=== PATIENT | female | born 1995 | race Caucasian/White ===

== ENCOUNTER 2018-02-13 21:44 | Observation (INO) ==
[2018-02-13 22:10] LABS: Microscopic, Urine URINE MICROSCOPIC (MICROSCOPIC)
[2018-02-13 22:14] LABS: Appearance,Urine CLEAR (Clear); Bilirubin,Urine Negative (Negative); Blood, Urine 2+ (Negative); Color,Urine YELLOW (Yellow); Glucose,Urine (UA) Negative (Negative); Ketones,Urine Negative (Negative); Leukocyte Esterase,Urine Negative (Negative); Protein,Urine Negative (Negative); Specific Gravity, Urine >= 1.030 (1.005-1.030); Urobilinogen,Urine 0.2 EU/dl (0.2)
[2018-02-13 22:15] LABS: Basophils # 0.1 K/mm3 (0-0.2); Basophils % 0.6 % (0.1-2.0); Eosinophils # 0.2 K/mm3 (0.0-0.4); Eosinophils % 1.4 % (0.1-12.0); Hematocrit 44.6 % (37.0-47.0); Hemoglobin 14.3 g/dL (12.2-16.2); Lymphocytes # 6.7 K/mm3 (0.7-4.5); Lymphocytes % 38.9 K/mm3 (10-50); Mean Corpuscular HGB Conc 32.1 g/dL (31.8-35.4); Mean Corpuscular Hemoglobin 30.1 pg (27.0-31.2); Mean Corpuscular Volume 93.7 fl (81-99); Mean Platelet Volume 7.7 fl (7.4-10.4); Monocytes % 5.6 % (1.7-9.3); Neutrophils # 9.3 K/mm3 (1.8-7.8); Neutrophils % 53.6 % (37.0-80.0); Platelet Count 354 K/mm3 (142-424); Red Blood Count 4.76 M/mm3 (4.20-5.40); Red Cell Distribution Width 12.9 % (11.5-17.5); White Blood Count 17.3 K/mm3 (4.8-10.8)
[2018-02-13 22:32] LABS: Alanine Aminotransferase 28 U/L (12-78); Albumin Level 3.7 gm/dL (3.4-5.0); Albumin/Globulin Ratio 0.9 (1.1-1.8); Alkaline Phosphatase 61 U/L (46-116); Amylase 51 U/L (25-125); Anion Gap 14.9 mEq/L (5-15); Aspartate Amino Transferase 8 U/L (15-37); Bilirubin,Total 0.2 mg/dL (0.2-1.0); Blood Urea Nitrogen 11 mg/dL (7-18); Calcium 9.7 mg/dL (8.5-10.1); Carbon Dioxide 24 mmol/L (21.0-32.0); Chloride 105 mmol/L (98-107); Glucose 120 mg/dL (74-106); Lipase 134 u/L (73-393); Potassium 3.9 mmoL/L (3.5-5.1); Sodium 140 mmol/L (136-145); Total Protein,Serum 7.7 gm/dL (6.4-8.2)
[2018-02-13 22:44] LABS: Bacteria,Urine 1+ /lpf; WBC,Urine Occasional #/hpf (0-3)
[2018-02-13 22:59] LABS: Eosinophils % 1 % (0-3); Lymphocytes % 36 % (10-50); Monocytes % 1 % (2-9); Neutrophils % 62 % (42-76); Stomatocytes 1+; Total Cells Counted 100
--- NOTE | 2018-02-14 00:18 | Emergency Department Note ---
ED Disposition Clinical Impression: Abdominal pain Qualifiers: Abdominal location: right upper quadrant Qualified Code(s): R10.11 - Right upper quadrant pain Disposition: Admitted as Observation Condition on Discharge: Good - Critical Care Critical Care Time: No Attestation: On 02/13/18, the high probability of a clinically significant, sudden or life threatening deterioration of the following system(s) required my full and direct attention, intervention and personal management. The time I documented below is in addition to time spent performing reported procedures but includes the following listed in this critical care notation. Medical Decision Making - Medical Records Medical records reviewed: Yes: I reviewed the patient's medical records. - Dhruv Inquiry Pt receiving controlled substance: No Vital Signs: 02/13/18 21:45 02/13/18 23:35 02/13/18 23:51 Temperature 98.7 F Temperature Source Oral Pulse Rate [Right Brachial] 133 H 90 89 Respiratory Rate 18 18 16 Blood Pressure [Right Arm] 156/90 136/87 136/87 Blood Pressure Mean [Right Arm] 112 103 103 Blood Pressure Source [Right Arm] Automatic Cuff Automatic Cuff Automatic Cuff Blood Pressure Position [Right Arm] Sitting Sitting Sitting 02 Sat by Pulse Oximetry 98 100 100 Oxygen Delivery Method Room Air Room Air Room Air 02/14/18 00:24 02/14/18 00:57 02/14/18 01:30 Temperature 98.5 F Temperature Source Oral Pulse Rate [Right Brachial] 92 H 86 91 H Respiratory Rate 16 15 15 Blood Pressure [Right Arm] 140/66 141/76 139/65 Blood Pressure Mean [Right Arm] 90 97 89 Blood Pressure Source [Right Arm] Blood Pressure Position [Right Arm] 02 Sat by Pulse Oximetry 97 99 98 Oxygen Delivery Method Room Air Room Air Room Air - Lab Data Lab results reviewed: Yes: I reviewed the patient's lab results. Lab Results 02/13/18 21:50: Urine Color Yellow, Urine Appearance Clear, Urine pH 6.0, Ur Specific [place] >= 1.030, Urine Protein Negative, Urine Glucose (UA) Negative, Urine Ketones Negative, Urine Blood 2+, Urine Nitrate Negative, Urine Bilirubin Negative, Urine Urobilinogen 0.2, Ur Leukocyte Esterase Negative, Urine RBC 5-10 , Urine WBC Occasional, Ur Squamous Epith Cells 10-20, Urine Bacteria 1+ 02/13/18 21:50: Urine HCG, Qual Negative 02/13/18 22:00: WBC 17.3 H, RBC 4.76, Hgb 14.3, Hct 44.6, MCV 93.7, MCH 30.1, MCHC 32.1, RDW 12.9, Plt Count 354, MPV 7.7, Neut % (Auto) 53.6, Lymph % (Auto) 38.9, [place] % (Auto) 5.6, Eos % (Auto) 1.4, Baso % (Auto) 0.6, Neut # (Auto) 9.3 H, Lymph # (Auto) 6.7 H, [place] # (Auto) 1.0, Eos # (Auto) 0.2, Baso # (Auto) 0.1 , Total Counted 100, Neutrophils % (Manual) 62, Lymphocytes % (Manual) 36, Monocytes % (Manual) 1 L, Eosinophils % (Manual) 1, Platelet Estimate Normal, Stomatocytes 1+ 02/13/18 22:00: Sodium 140, Potassium 3.9, Chloride 105, Carbon Dioxide 24, Anion Gap 14.9, BUN 11, Creatinine 0.79, Estimated Creat Clear 108, Estimated GFR 90, Est GFR ( Amer) 109, Glucose 120 H, Calcium 9.7, Total Bilirubin 0.2, AST 8 L, ALT 28, Alkaline Phosphatase 61, Troponin I < 0.02, Total Protein 7.7, Albumin 3.7, Globulin 4.0 H, Albumin/Globulin Ratio 0.9 L, Amylase 51, Lipase 134 Result diagrams: 02/13/18 22:00 02/13/18 22:00 Orders (Tests/Meds): ED MEDICATIONS Generic Name Dose Route Start Last Admin Trade Name Freq PRN Reason Stop Dose Admin Sodium Chloride 1,000 mls @ 100 mls/hr 02/14/18 00:30 02/14/18 00:23 Sod Chlor 0.9% 1000ml Bag IV 02/14/18 10:29 100 mls/hr .Q10H LAMONT Administration Discontinued Medications Generic Name Dose Route Start Last Admin Trade Name Freq PRN Reason Stop Dose Admin Famotidine 20 mg 02/13/18 21:57 02/13/18 22:14 Pepcid 20mg/2ml Vial IV 02/13/18 21:58 20 mg ONCE ONE Administration Sodium Chloride 1,000 mls @ 999 mls/hr 02/13/18 22:00 06/06/18 22:14 Sod Chlor 0.9% 1000ml Bag IV 02/13/18 23:00 999 mls/hr .Q1H1M LAMONT Administration Ketorolac Tromethamine 30 mg 02/13/18 21:57 02/13/18 22:14 Toradol 30mg/Ml Vial IV 02/13/18 21:58 30 mg ONCE ONE Administration Metoclopramide HCl 5 mg 02/13/18 21:57 02/13/18 22:14 Reglan 10mg/2ml Vial IVP 02/13/18 21:58 5 mg ONCE ONE Administration Morphine Sulfate 4 mg 02/14/18 00:17 02/14/18 00:23 Morphine 2mg/2ml Syringe IV 02/14/18 00:18 4 mg ONCE ONE Administration Ondansetron HCl 4 mg 02/14/18 00:17 02/14/18 00:23 Zofran 4mg/2ml Vial IV 02/14/18 00:18 4 mg ONCE ONE Administration ORDERS Category Date Time Status CT abdomen pelvis wo con Stat Cat Scan 02/13/18 21:57 Taken Chest XR 2 view (NOT portable) [XR chest 2V] Stat Exams 02/13/18 21:58 Taken ECG Request by /Erlin Stat Y 02/13/18 21:58 Ordered - Radiology Data #1 Image(s): Chest Image Reviewed: Yes I reviewed the patient's radiology image Preliminary Findings: Normal/NAD - CT Data CT Scan: Abdomen, Pelvis Time Received: 01:[address] Reviewed: Yes: I have viewed the radiologist's interpretation Preliminary Findings: Abnormal (see report ) - ECG Data Tracing #1 I reviewed this ECG and interpreted as documented below: Normal Sinus Rhythm: Yes Ischemic changes: non-specific ST-T wave changes - Physician Consults Physician Consulted: natividad Reason -: Admission Nausea/Vomiting/Diarrhea HPI - General Chief complaint: Abdominal Pain Stated complaint: stomach pain Time Seen by Provider: 02/14/18 00:14 Mode of Arrival: Ambulatory Source of Information: Patient, Parent(s), Medical Record Limitations: No Limitations Description of Symptoms (Recalled from ER Triage Doc. by RN): c/o mid gastric abdominal pain that started at 0500 today, and has progressively gotten worse over the day. Reports no nausea or vomiting. No c/o diarrhea. No c/o fever. Reports pain radiates into her back. - History of Present Illness HPI Narrative: pt with progressive painful upper abd pain with nausea but no gerd or melena - she has no chest pain and no cough MD complaint: nausea, vomiting, abdominal pain Onset (ago): day(s) Associated Abdominal Pain: Yes Location of pain: RUQ, epigastric Quality: sharp Consistency: intermittent - Related Data Home Medications Medication Instructions Recorded Confirmed Norethindrone-E.estradiol-Iron 1 tab PO DAILY 02/13/18 02/13/18 [Microgestin Fe 1-20 Tablet] Allergies Allergy/AdvReac Type Severity Reaction Status Date / Time ACETAMINOPHEN Allergy Severe CLOSES Uncoded 08/28/17 14:03 [facility] History I have reviewed the patient's past medical history: Yes Medical History: Denies:: Cancer, Diabetes Mellitus Type 1, Diabetes Mellitus Type 2, MRSA Amputation: No Fractures: No - Social History Educational Level: Completed Grade School Smoking Status: Current every day smoker Tobacco Type: cigarettes Alcohol Intake: never - Psychiatric History Expresses thoughts of harming self/others: None Suicide Plan Description: No Plan ROS Obtained: Yes All systems reviewed & no additional complaints - Constitutional Constitutional: Denies fever(s) - Eyes Eyes: Denies change in vision - ENT Ears, Nose, Mouth, and Throat: Denies sore throat - Cardiovascular Cardiovascular: Denies chest pain at rest - Respiratory Respiratory: No cough - Gastrointestinal Gastrointestingal: Reports: abdominal pain, nausea, vomiting. Denies: diarrhea , black, tarry stools - Genitourinary Female Genitourinary: Denies hematuria - Musculoskeletal Musculoskeletal: Denies joint pain, Denies joint swelling - Integumentary/Breasts Skin/Breast: Denies rash - Neurologic Neurologic: Denies headache(s), Denies seizure-like activity Physical Exam - General General appearance: alert, in no apparent distress - Head Head exam: normocephalic - Eye Eye exam: Present: PERRL, EOMI. Absent: scleral icterus - ENT ENT exam: Present: mucous membranes moist - Neck Neck exam: Present: trachea midline - Respiratory Respiratory exam: Present: normal lung sounds bilaterally. Absent: respiratory distress - Cardiovascular Cardiovascular exam: Present: regular rate. Absent: systolic murmur - Abdominal Exam Abdominal exam: Present: soft, tenderness, Gibson's sign Abdominal tenderness: Present: RUQ, epigastrium, moderate - Extremities Exam Extremities exam: Present: full ROM - Back Exam Back exam: Absent: CVA tenderness (R) - Neurological Exam Neurological exam: Present: alert, oriented X3, CN II-XII intact - Psychiatric Psychiatric exam: Present: normal affect - Skin Skin exam: Absent: rash
[2018-02-14 06:05] LABS: Albumin Level 3.2 gm/dL (3.4-5.0); Albumin/Globulin Ratio 0.9 (1.1-1.8); Anion Gap 14.4 mEq/L (5-15); Bilirubin,Total 0.2 mg/dL (0.2-1.0); Calcium 8.8 mg/dL (8.5-10.1); Globulin 3.6 gm/dl (1.3-3.2); Potassium 4.4 mmoL/L (3.5-5.1); Total Protein,Serum 6.8 gm/dL (6.4-8.2)
--- NOTE | 2018-02-14 07:40 | Pharmacy Consult Notes ---
[facility] Pharmacy VTE Monitoring - Patient Demographics Admission date: 02/14/18 Report Date: 02/14/18 Time: 07:40 Allergies/Adverse Reactions: Patient Allergies acetaminophen Allergy (Severe, Verified 02/14/18 07:39) Difficulty Swallowing Height: 1.7 m Weight: 131.655 kg Patient Problems: Current Active Problems Abdominal pain (Acute) - VTE Risk Labs: VTE Related Lab Results Hgb 14.3 g/dL (12.2-16.2) 02/13/18 22:00 Hct 44.6 % (37.0-47.0) 02/13/18 22:00 Plt Count 354 K/mm3 (142-424) 02/13/18 22:00 BUN 9 mg/dL (7-18) 02/14/18 05:20 Creatinine 0.73 mg/dL (0.55-1.02) 02/14/18 05:20 Estimated Creat Clear 117 mL/min (0-300) 02/14/18 05:20 Was VTE Risk Assessment Performed: Yes VTE Score: 3 VTE Risk Level: Low Risk Clinical Trial Participant: No - Prophylaxis VTE Prophylaxis Ordered?: Yes Types of VTE Prophylaxis: TEDS Knee High
--- NOTE | 2018-02-14 07:51 | History & Physical Report ---
*Admission Date: 02/14/18 *Chief complaint: Abdominal pain *History of present illness: 22-year-old white female with no past medical history, who woke up at 5 AM yesterday with intense abdominal pain that awoke her from sleep. She thought she had some type of stomach viral infection and went to work but the pain became intolerable. She did not have vomiting but has significant nausea with cramping type right and left upper quadrant pain. No diarrhea. The pain became worse, and she came to the emergency department late last night. CT scan showed evidence of cholelithiasis. She had elevated white count, but otherwise no electrolyte disturbances. She was admitted to hospital for pain control and further evaluation. This morning she continues to be uncomfortable but without fever. [facility] History I have reviewed the patient's past medical history: Yes Medical History: Denies:: Cancer, Diabetes Mellitus Type 1, Diabetes Mellitus Type 2, MRSA Other Surgeries: Yes: No Previous Surgery Amputation: No Fractures: No - *Social History Educational Level: Completed High School Smoking Status: Current every day smoker Tobacco Type: cigarettes # Packs/Day (cigarettes): 1 #Yrs smoked (if former smoker): 8 Alcohol Intake: never Occupational Status: employed Housing: house Household Members: spouse - Psychiatric History Expresses thoughts of harming self/others: None Suicide Plan Description: No Plan *Family Hx:: Hyperlipidemia, Hypertension, Stroke Review of Systems - Constitutional Denies anorexia, Denies body ache(s), Denies chills - ENT Denies abnormal hearing, Denies bleeding gums - *Cardiovascular Denies chest pain, Denies chest pain at rest, Denies chest pain with activity, Denies excessive sweating, Denies shortness of breath - *Respiratory Denies change in phlegm color, Denies chest congestion, Denies cough - *Gastrointestinal Reports abdominal pain, Reports bloating, Denies coffee ground vomit, Denies constipation, Denies cramping, Denies difficulty swallowing - *Genitourinary Denies abnormal periods, Denies painful periods Comments: On oral contraceptives. - *Musculoskeletal Denies abnormal walking, Denies joint pain, Denies decreased muscle mass - *Neurologic Denies abnormal walking, Denies abnormal hearing, Denies abnormal movements, Denies headache(s), Denies seizure-like activity Meds Home Medications Medication Instructions Recorded Confirmed Type Norethindrone-E.estradiol-Iron 1 tab PO DAILY 02/13/18 02/13/18 History [Microgestin Fe 1-20 Tablet] Allergies Allergy/AdvReac Type Severity Reaction Status Date / Time acetaminophen Allergy Severe Difficulty Verified 02/14/18 07:39 Swallowing Exam Vital signs and Labs for Last 24 Hours: Temp Pulse Resp BP Pulse Ox 98.7 F 100 H 20 113/77 98 02/14/18 07:30 02/14/18 07:30 02/14/18 07:30 02/14/18 07:30 02/14/18 07:30 Laboratory Results - last 24 hr 02/13/18 21:50: Urine Color Yellow, Urine Appearance Clear, Urine pH 6.0, Ur Specific [place] >= 1.030, Urine Protein Negative, Urine Glucose (UA) Negative, Urine Ketones Negative, Urine Blood 2+, Urine Nitrate Negative, Urine Bilirubin Negative, Urine Urobilinogen 0.2, Ur Leukocyte Esterase Negative, Urine RBC 5-10 , Urine WBC Occasional, Ur Squamous Epith Cells 10-20, Urine Bacteria 1+ 02/13/18 21:50: Urine HCG, Qual Negative 02/13/18 22:00: WBC 17.3 H, RBC 4.76, Hgb 14.3, Hct 44.6, MCV 93.7, MCH 30.1, MCHC 32.1, RDW 12.9, Plt Count 354, MPV 7.7, Neut % (Auto) 53.6, Lymph % (Auto) 38.9, [place] % (Auto) 5.6, Eos % (Auto) 1.4, Baso % (Auto) 0.6, Neut # (Auto) 9.3 H, Lymph # (Auto) 6.7 H, [place] # (Auto) 1.0, Eos # (Auto) 0.2, Baso # (Auto) 0.1 , Total Counted 100, Neutrophils % (Manual) 62, Lymphocytes % (Manual) 36, Monocytes % (Manual) 1 L, Eosinophils % (Manual) 1, Platelet Estimate Normal, Stomatocytes 1+ 02/13/18 22:00: Sodium 140, Potassium 3.9, Chloride 105, Carbon Dioxide 24, Anion Gap 14.9, BUN 11, Creatinine 0.79, Estimated Creat Clear 108, Estimated GFR 90, Est GFR ( Amer) 109, Glucose 120 H, Calcium 9.7, Total Bilirubin 0.2, AST 8 L, ALT 28, Alkaline Phosphatase 61, Troponin I < 0.02, Total Protein 7.7, Albumin 3.7, Globulin 4.0 H, Albumin/Globulin Ratio 0.9 L, Amylase 51, Lipase 134 02/14/18 05:20: Sodium 140, Potassium 4.4, Chloride 107, Carbon Dioxide 23, Anion Gap 14.4, BUN 9, Creatinine 0.73, Estimated Creat Clear 117, Estimated GFR 99, Est GFR ( Amer) 120, Glucose 98, Calcium 8.8, Magnesium 1.9, Total Bilirubin 0.2, AST 8 L, ALT 24, Alkaline Phosphatase 53, Total Protein 6.8 , Albumin 3.2 L D, Globulin 3.6 H, Albumin/Globulin Ratio 0.9 L I & O for Last 24 hours: Intake & Output 02/11/18 02/12/18 02/13/18 02/14/18 11:59 11:59 11:59 11:59 Intake Total 2573 / 2573 Balance 2573 / 2573 Weight 290 lb 4 oz Narrative: Alert, oriented 3. ENT exam is clear. Heart rate regular. Lungs are clear with good air movement. Abdomen has positive bowel sounds and is soft but is extremely tender with a positive Gibson's sign in the right upper quadrant. No CVA tenderness. No edema. H&P: Result - Labs Labs: Short CBC 02/13/18 Range/Units 22:00 WBC 17.3 H (4.8-10.8) K/mm3 Hgb 14.3 (12.2-16.2) g/dL Hct 44.6 (37.0-47.0) % Plt Count 354 (142-424) K/mm3 [facility] 02/13/18 02/14/18 22:00 05:20 Sodium 140 140 Potassium 3.9 4.4 Chloride 105 107 Carbon Dioxide 24 23 BUN 11 9 Creatinine 0.79 0.73 Glucose 120 H 98 Calcium 9.7 8.8 Cardiac Enzymes 02/13/18 Range/Units 22:00 Troponin I < 0.02 (0.00-0.06) ng/ml Liver Function 02/13/18 02/14/18 Range/Units 22:00 05:20 Total Bilirubin 0.2 0.2 (0.2-1.0) mg/dL AST 8 L 8 L (15-37) U/L ALT 28 24 (12-78) U/L Alkaline Phosphatase 61 53 (46-116) U/L Albumin 3.7 3.2 L D (3.4-5.0) gm/dL Urine 02/13/18 Range/Units 21:50 Urine Color Yellow (Yellow) Urine Appearance Clear (Clear) Urine pH 6.0 (5.0-8.5) Ur Specific [place] >= 1.030 (1.005-1.030) Urine Protein Negative (Negative) Urine Glucose (UA) Negative (Negative) Assessment and Plan (1) Abdominal pain Current visit: Yes Status: Acute Qualifiers: Abdominal location: right upper quadrant Qualified Code(s): R10.11 - Right upper quadrant pain Category: Medical Code(s): R10.9 - Unspecified abdominal pain Given leukocytosis and possibility of gallbladder disease have started Invanz. Surgical consultation and gallbladder ultrasound today.
[2018-02-14 08:07] LABS: Basophils # 0.1 K/mm3 (0-0.2); Basophils % 0.5 % (0.1-2.0); Eosinophils # 0.2 K/mm3 (0.0-0.4); Eosinophils % 0.9 % (0.1-12.0); Hematocrit 42.4 % (37.0-47.0); Hemoglobin 13.3 g/dL (12.2-16.2); Lymphocytes # 5.1 K/mm3 (0.7-4.5); Mean Corpuscular HGB Conc 31.4 g/dL (31.8-35.4); Mean Corpuscular Hemoglobin 29.8 pg (27.0-31.2); Mean Platelet Volume 8.2 fl (7.4-10.4); Monocytes # 0.9 K/mm3 (0.1-1.0); Monocytes % 5.4 % (1.7-9.3); Neutrophils # 10.7 K/mm3 (1.8-7.8); Neutrophils % 63.2 % (37.0-80.0); Platelet Count 265 K/mm3 (142-424); Red Blood Count 4.46 M/mm3 (4.20-5.40); Red Cell Distribution Width 12.8 % (11.5-17.5); White Blood Count 16.9 K/mm3 (4.8-10.8)
[2018-02-14 08:19] LABS: Albumin Level 3.3 gm/dL (3.4-5.0); Albumin/Globulin Ratio 0.9 (1.1-1.8); Anion Gap 12.3 mEq/L (5-15); Bilirubin,Total 0.2 mg/dL (0.2-1.0); Calcium 8.8 mg/dL (8.5-10.1); Globulin 3.6 gm/dl (1.3-3.2); Potassium 4.3 mmoL/L (3.5-5.1); Total Protein,Serum 6.9 gm/dL (6.4-8.2)
[2018-02-14 09:56] LABS: Lymphocytes % 30 % (10-50); Monocytes % 9 % (2-9); Neutrophils % 61 % (42-76); Total Cells Counted 100
[2018-02-14 09:57] LABS: Stomatocytes 1+
[2018-02-14 09:58] LABS: Tear Drop Cells 1+
--- NOTE | 2018-02-14 12:23 | Consult Report ---
*Admission Date: 02/14/18 *Chief complaint: epigastric pain *History of present illness: This is a 22-year-old female seen in consultation from Dr. Weinberg for evaluation regarding upper abdominal pain. Below is forwarded from her history and physical HPI: 22-year-old white female with no past medical history, who woke up at 5 AM yesterday with intense abdominal pain that awoke her from sleep. She thought she had some type of stomach viral infection and went to work but the pain became intolerable. She did not have vomiting but has significant nausea with cramping type right and left upper quadrant pain. No diarrhea. The pain became worse, and she came to the emergency department late last night. CT scan showed no evidence of cholelithiasis. She had elevated white count, but otherwise no electrolyte disturbances. She was admitted to hospital for pain control and further evaluation. This morning she continues to be uncomfortable but without fever. Note: Patient is subsequently undergone a right upper quadrant ultrasound. She has some biliary sludge, but no evidence of gallstones, pericholecystic fluid, gallbladder wall thickening, or biliary dilatation. Review of Systems - Constitutional Denies fever(s) - Eyes Denies change in vision - *Respiratory Denies cough - *Gastrointestinal Reports abdominal pain, Denies difficulty swallowing, Denies black, tarry stools - *Neurologic Denies abnormal walking, Denies abnormal hearing, Denies abnormal movements, Denies headache(s), Denies seizure-like activity - Hematologic/Lymphatic Denies easy bleeding [facility]H History Medical History: Denies:: Cancer, Diabetes Mellitus Type 1, Diabetes Mellitus Type 2, MRSA Other Surgeries: Yes: No Previous Surgery Amputation: No Fractures: No - *Social History Educational Level: Completed High School Smoking Status: Current every day smoker Tobacco Type: cigarettes # Packs/Day (cigarettes): 1 #Yrs smoked (if former smoker): 8 Alcohol Intake: never Occupational Status: employed Housing: house Household Members: spouse - Psychiatric History Expresses thoughts of harming self/others: None Suicide Plan Description: No Plan *Family Hx:: Hyperlipidemia, Hypertension, Stroke Meds Home Medications Medication Instructions Recorded Confirmed Type Norethindrone-E.estradiol-Iron 1 tab PO DAILY 02/13/18 02/13/18 History [Microgestin Fe 1-20 Tablet] Allergies Allergy/AdvReac Type Severity Reaction Status Date / Time acetaminophen Allergy Severe Difficulty Verified 02/14/18 07:39 Swallowing Exam Vital signs and Labs for Last 24 Hours: Temp Pulse Resp BP Pulse Ox 98.7 F 100 H 20 113/77 98 02/14/18 07:30 02/14/18 07:30 02/14/18 07:30 02/14/18 07:30 02/14/18 07:30 Laboratory Results - last 24 hr 02/13/18 21:50: Urine Color Yellow, Urine Appearance Clear, Urine pH 6.0, Ur Specific Levasy >= 1.030, Urine Protein Negative, Urine Glucose (UA) Negative, Urine Ketones Negative, Urine Blood 2+, Urine Nitrate Negative, Urine Bilirubin Negative, Urine Urobilinogen 0.2, Ur Leukocyte Esterase Negative, Urine RBC 5-10 , Urine WBC Occasional, Ur Squamous Epith Cells 10-20, Urine Bacteria 1+ 02/13/18 21:50: Urine HCG, Qual Negative 02/13/18 22:00: WBC 17.3 H, RBC 4.76, Hgb 14.3, Hct 44.6, MCV 93.7, MCH 30.1, MCHC 32.1, RDW 12.9, Plt Count 354, MPV 7.7, Neut % (Auto) 53.6, Lymph % (Auto) 38.9, [place] % (Auto) 5.6, Eos % (Auto) 1.4, Baso % (Auto) 0.6, Neut # (Auto) 9.3 H, Lymph # (Auto) 6.7 H, [place] # (Auto) 1.0, Eos # (Auto) 0.2, Baso # (Auto) 0.1 , Total Counted 100, Neutrophils % (Manual) 62, Lymphocytes % (Manual) 36, Monocytes % (Manual) 1 L, Eosinophils % (Manual) 1, Platelet Estimate Normal, Stomatocytes 1+ 02/13/18 22:00: Sodium 140, Potassium 3.9, Chloride 105, Carbon Dioxide 24, Anion Gap 14.9, BUN 11, Creatinine 0.79, Estimated Creat Clear 108, Estimated GFR 90, Est GFR ( Amer) 109, Glucose 120 H, Calcium 9.7, Total Bilirubin 0.2, AST 8 L, ALT 28, Alkaline Phosphatase 61, Troponin I < 0.02, Total Protein 7.7, Albumin 3.7, Globulin 4.0 H, Albumin/Globulin Ratio 0.9 L, Amylase 51, Lipase 134 02/14/18 05:20: Sodium 140, Potassium 4.4, Chloride 107, Carbon Dioxide 23, Anion Gap 14.4, BUN 9, Creatinine 0.73, Estimated Creat Clear 117, Estimated GFR 99, Est GFR ( Amer) 120, Glucose 98, Calcium 8.8, Magnesium 1.9, Total Bilirubin 0.2, AST 8 L, ALT 24, Alkaline Phosphatase 53, Total Protein 6.8 , Albumin 3.2 L D, Globulin 3.6 H, Albumin/Globulin Ratio 0.9 L 02/14/18 08:00: WBC 16.9 H, RBC 4.46, Hgb 13.3, Hct 42.4, MCV 95.0, MCH 29.8, MCHC 31.4 L, RDW 12.8, Plt Count 265 D, MPV 8.2, Neut % (Auto) 63.2, Lymph % ( Auto) 30.0, [place] % (Auto) 5.4, Eos % (Auto) 0.9, Baso % (Auto) 0.5, Neut # (Auto ) 10.7 H, Lymph # (Auto) 5.1 H, [place] # (Auto) 0.9, Eos # (Auto) 0.2, Baso # ( Auto) 0.1, Total Counted 100, Neutrophils % (Manual) 61, Lymphocytes % (Manual) 30, Monocytes % (Manual) 9, Platelet Estimate Normal, Tear Drop Cells 1+, Stomatocytes 1+ 02/14/18 08:00: Sodium 141, Potassium 4.3, Chloride 107, Carbon Dioxide 26, Anion Gap 12.3, BUN 8, Creatinine 0.78, Estimated Creat Clear 109, Estimated GFR 92, Est GFR ( Amer) 111, Glucose 97, Calcium 8.8, Total Bilirubin 0.2 , AST 7 L, ALT 26, Alkaline Phosphatase 53, Total Protein 6.9, Albumin 3.3 L, Globulin 3.6 H, Albumin/Globulin Ratio 0.9 L I & O for Last 24 hours: Intake & Output 02/12/18 02/13/18 02/14/18 02/15/18 11:59 11:59 11:59 11:59 Intake Total 2573 / 2573 Balance 2573 / 2573 Weight 290 lb 4 oz - Constitutional mild distress, obese - *Routine Respiratory Exam Absent: respiratory distress - *Routine Cardiovascular Exam Present: RRR - *Routine Abdominal Exam Present: soft, tenderness Comments: mostly TTP in epigastric region Results - Labs 02/14/18 08:00 02/14/18 08:00 Laboratory Results - last 24 hr 02/13/18 21:50: Urine Color Yellow, Urine Appearance Clear, Urine pH 6.0, Ur Specific Levasy >= 1.030, Urine Protein Negative, Urine Glucose (UA) Negative, Urine Ketones Negative, Urine Blood 2+, Urine Nitrate Negative, Urine Bilirubin Negative, Urine Urobilinogen 0.2, Ur Leukocyte Esterase Negative, Urine RBC 5-10 , Urine WBC Occasional, Ur Squamous Epith Cells 10-20, Urine Bacteria 1+ 02/13/18 21:50: Urine HCG, Qual Negative 02/13/18 22:00: WBC 17.3 H, RBC 4.76, Hgb 14.3, Hct 44.6, MCV 93.7, MCH 30.1, MCHC 32.1, RDW 12.9, Plt Count 354, MPV 7.7, Neut % (Auto) 53.6, Lymph % (Auto) 38.9, [place] % (Auto) 5.6, Eos % (Auto) 1.4, Baso % (Auto) 0.6, Neut # (Auto) 9.3 H, Lymph # (Auto) 6.7 H, [place] # (Auto) 1.0, Eos # (Auto) 0.2, Baso # (Auto) 0.1 , Total Counted 100, Neutrophils % (Manual) 62, Lymphocytes % (Manual) 36, Monocytes % (Manual) 1 L, Eosinophils % (Manual) 1, Platelet Estimate Normal, Stomatocytes 1+ 02/13/18 22:00: Sodium 140, Potassium 3.9, Chloride 105, Carbon Dioxide 24, Anion Gap 14.9, BUN 11, Creatinine 0.79, Estimated Creat Clear 108, Estimated GFR 90, Est GFR ( Amer) 109, Glucose 120 H, Calcium 9.7, Total Bilirubin 0.2, AST 8 L, ALT 28, Alkaline Phosphatase 61, Troponin I < 0.02, Total Protein 7.7, Albumin 3.7, Globulin 4.0 H, Albumin/Globulin Ratio 0.9 L, Amylase 51, Lipase 134 02/14/18 05:20: Sodium 140, Potassium 4.4, Chloride 107, Carbon Dioxide 23, Anion Gap 14.4, BUN 9, Creatinine 0.73, Estimated Creat Clear 117, Estimated GFR 99, Est GFR ( Amer) 120, Glucose 98, Calcium 8.8, Magnesium 1.9, Total Bilirubin 0.2, AST 8 L, ALT 24, Alkaline Phosphatase 53, Total Protein 6.8 , Albumin 3.2 L D, Globulin 3.6 H, Albumin/Globulin Ratio 0.9 L 02/14/18 08:00: WBC 16.9 H, RBC 4.46, Hgb 13.3, Hct 42.4, MCV 95.0, MCH 29.8, MCHC 31.4 L, RDW 12.8, Plt Count 265 D, MPV 8.2, Neut % (Auto) 63.2, Lymph % ( Auto) 30.0, [place] % (Auto) 5.4, Eos % (Auto) 0.9, Baso % (Auto) 0.5, Neut # (Auto ) 10.7 H, Lymph # (Auto) 5.1 H, [place] # (Auto) 0.9, Eos # (Auto) 0.2, Baso # ( Auto) 0.1, Total Counted 100, Neutrophils % (Manual) 61, Lymphocytes % (Manual) 30, Monocytes % (Manual) 9, Platelet Estimate Normal, Tear Drop Cells 1+, Stomatocytes 1+ 02/14/18 08:00: Sodium 141, Potassium 4.3, Chloride 107, Carbon Dioxide 26, Anion Gap 12.3, BUN 8, Creatinine 0.78, Estimated Creat Clear 109, Estimated GFR 92, Est GFR ( Amer) 111, Glucose 97, Calcium 8.8, Total Bilirubin 0.2 , AST 7 L, ALT 26, Alkaline Phosphatase 53, Total Protein 6.9, Albumin 3.3 L, Globulin 3.6 H, Albumin/Globulin Ratio 0.9 L - Imaging CT scan - abdomen: report reviewed, image reviewed CT scan - pelvis: report reviewed, image reviewed US - abdomen: report reviewed, image reviewed Assessment and Plan (1) Abdominal pain Current visit: Yes Status: Acute Qualifiers: Abdominal location: right upper quadrant Qualified Code(s): R10.11 - Right upper quadrant pain Category: Medical Code(s): R10.9 - Unspecified abdominal pain The majority of the patient's pain is in the epigastric region and she is also complaining of pain in the bilateral upper quadrants. She is tender in the epigastric region and somewhat in the right upper quadrant. There is no definitive evidence of biliary disease. Her liver function tests are essentially normal. She does have a leukocytosis and concerns regarding possible gastritis or gastroenteritis noted. The patient's anomaly on her CT scan (haustral thickening in cecum) is not in a location consistent with her symptoms. Esophagogastroduodenoscopy-I have discussed the risks and benefits and she agrees to proceed If no definitive abnormality noted on EGD, a CT scan with contrast will be ordered.
--- NOTE | 2018-02-14 12:28 | Procedure Note ---
- Procedure: Date: 02/14/18 Procedure Performed:: Esophagogastroduodenoscopy with biopsy Indications:: Epigastric pain Leukocytosis Performing Provider:: Rene Abraham MD Referring Provider:: Dr. Weinberg Sedation:: Monitored anesthesia care Procedure:: After informed consent was obtained, the patient was taken to the endoscopy suite. Monitored anesthesia care ensued after she was transferred to the left lateral decubitus position. The gastroscope was advanced. The gastroesophageal junction was at 40 cm. The stomach was entered. Retroflexion revealed minimal inflammatory changes and a fairly small sliding hiatal hernia. Distally, minimal inflammatory change also noted and a biopsy of the antrum was obtained. The pylorus is intubated. The duodenal mucosa appeared relatively normal. No severe gastritis, ulcerations, or mass lesions were seen. The gastroscope was carefully removed and the patient was transferred to recovery. Findings:: Mild gastritis Fairly small sliding hiatal hernia Specimens:: Antral biopsy Recommendations:: Follow-up pending pathology Complications:: No immediate Estimated blood obtained (mL): 1
--- NOTE | 2018-02-14 14:18 | Progress Note ---
[facility] Anesthesia Checklist - Structural Data Admitted From: Home Planned Operative Procedure/s: bucky gonzalez Consent for Planned Operative Procedure(s) Verified: Yes Verified Documents: Surgical Consent - Airway Assessment C-Spine Mobility Assessed: Yes TMJ Mobility Assessed: Yes Dentition: Good Dentition - Neurological Assessment Level of Consciousness: Awake, Alert, Appropriate - Anesthesia Plan Anesthesia Risk discussed: Yes Anesthesia Plan: Verified ASA Class: II Anesthesia Type: General [facility] Anesthesia HX I have reviewed the patient's past medical history: Yes Medical History: Denies:: Cancer, Diabetes Mellitus Type 1, Diabetes Mellitus Type 2, MRSA Other Surgeries: Yes: No Previous Surgery Amputation: No Fractures: No *Family Hx:: Hyperlipidemia, Hypertension, Stroke
--- NOTE | 2018-02-14 16:19 | Operative Note ---
Date of procedure: 02/14/18 Pre-op Diagnosis:: Biliary sludge Right upper quadrant pain Post-op Diagnosis:: same Procedure performed:: Laparoscopic cholecystectomy Surgeon:: Rene Abraham MD BRUSHER HAND:: Elvin Swartz Anesthesia: GETA Estimated blood loss (mL): 10 Clinical Note:: This is a 22-year-old female with leukocytosis, right upper quadrant abdominal pain, epigastric pain, and radiographic evidence of some biliary sludge. Concerns regarding possible gastritis or peptic ulcer disease were discussed with the patient and she underwent esophagogastroduodenoscopy earlier today. No significant findings noted. After discussion with the patient concerning the risks and benefits the decision was made to proceed with cholecystectomy. Operative findings:: Mild to moderate distention of gallbladder Operative note:: After informed consent was obtained, the patient was taken to the operating room and placed in the supine position. General anesthesia was induced and the abdomen was prepped and draped in a sterile fashion. After infiltration with local anesthetic an infraumbilical incision was made. A Veress needle was placed in position. The abdomen was insufflated. A 5 mm optical trocar was placed in position. Under direct visualization, a 12 mm trocar was placed in the subxiphoid position and 2 additional 5 mm trocars were placed in the right upper quadrant. The gallbladder was elevated up and over the liver margin. The tissue around the cystic duct was carefully dissected. 3 clips were placed proximally and the duct was transected with harmonic eric. Harmonic eric were then utilized to dissect the gallbladder away from the liver margin with careful attention to the control of the cystic artery. The gallbladder was placed in a retrieval bag and removed through the subxiphoid trocar site. The right upper quadrant was thoroughly irrigated. No active bleeding or bile leak was noted. Fascia at the subxiphoid trocar site was reapproximated utilizing the NeoClose device. The remaining trocars were removed. All wounds were irrigated and skin was closed with 4-0 Monocryl in a subcuticular fashion. Steri-Strips were applied. The patient's anesthetic agents were reversed and extubation was completed prior to transfer to recovery in stable condition. Condition: stable Disposition: PACU Specimens:: Gallbladder and contents Complications:: No immediate
--- NOTE | 2018-02-14 16:27 | Progress Note ---
[facility] Anesthesia Record Part I Intake, IV Amount: 1,000 Estimated blood loss (mL): 0 Urine output (mL): 0 Blood Pressure: 160/98 SaO2: 94 Pulse Rate: 104 Respiratory Rate: 16 Temperature: 97.8 F Patient is:: Awake, Stable Stable to PACU at:: 16:20
--- NOTE | 2018-02-14 16:27 | Progress Note ---
[facility] Anesthesia Record Part II Discharge Time: 16:50 Destination: floor PACU nurse assessment reviewed?: Yes Patient Condition:: Good Anesthesia Complications:: None
--- NOTE | 2018-02-15 06:52 | Progress Note ---
Subjective Patient reports: other (+ post-op pain; slept "on and off") Exam Vital signs and Labs for Last 24 Hours: Temp Pulse Resp BP Pulse Ox 97.8 F 83 20 142/79 98 02/15/18 04:00 02/15/18 04:00 02/15/18 04:00 02/15/18 04:00 02/15/18 04:00 Laboratory Results - last 24 hr 02/14/18 08:00: WBC 16.9 H, RBC 4.46, Hgb 13.3, Hct 42.4, MCV 95.0, MCH 29.8, MCHC 31.4 L, RDW 12.8, Plt Count 265 D, MPV 8.2, Neut % (Auto) 63.2, Lymph % ( Auto) 30.0, [place] % (Auto) 5.4, Eos % (Auto) 0.9, Baso % (Auto) 0.5, Neut # (Auto ) 10.7 H, Lymph # (Auto) 5.1 H, [place] # (Auto) 0.9, Eos # (Auto) 0.2, Baso # ( Auto) 0.1, Total Counted 100, Neutrophils % (Manual) 61, Lymphocytes % (Manual) 30, Monocytes % (Manual) 9, Platelet Estimate Normal, Tear Drop Cells 1+, Stomatocytes 1+ 02/14/18 08:00: Sodium 141, Potassium 4.3, Chloride 107, Carbon Dioxide 26, Anion Gap 12.3, BUN 8, Creatinine 0.78, Estimated Creat Clear 109, Estimated GFR 92, Est GFR ( Amer) 111, Glucose 97, Calcium 8.8, Total Bilirubin 0.2 , AST 7 L, ALT 26, Alkaline Phosphatase 53, Total Protein 6.9, Albumin 3.3 L, Globulin 3.6 H, Albumin/Globulin Ratio 0.9 L I & O for Last 24 hours: Intake & Output 02/12/18 02/13/18 02/14/18 02/15/18 11:59 11:59 11:59 11:59 Intake Total 2573 / 2573 1000 / 1000 Output Total 600 / 600 Balance 2573 / 2573 400 / 400 Weight 290 lb 4 oz - Constitutional no acute distress - *Routine Abdominal Exam Present: soft Comments: dressings intact Progress Note: A&P (1) Abdominal pain Status: Acute Current Visit: Yes (2) Biliary sludge Status: Acute Assessment and plan: stable s/p lap carlos F/U pending labs ambulate advance diet slowly Current Visit: Yes (3) RUQ pain Status: Acute Current Visit: Yes
[2018-02-15 07:22] LABS: Basophils % 0.2 % (0.1-2.0); Eosinophils % 0.2 % (0.1-12.0); Hematocrit 41.5 % (37.0-47.0); Hemoglobin 13.3 g/dL (12.2-16.2); Lymphocytes # 2.6 K/mm3 (0.7-4.5); Lymphocytes % 19.3 K/mm3 (10-50); Mean Corpuscular HGB Conc 32.1 g/dL (31.8-35.4); Mean Corpuscular Hemoglobin 30.2 pg (27.0-31.2); Mean Corpuscular Volume 94.2 fl (81-99); Mean Platelet Volume 7.8 fl (7.4-10.4); Monocytes # 0.6 K/mm3 (0.1-1.0); Monocytes % 4.3 % (1.7-9.3); Neutrophils # 10.1 K/mm3 (1.8-7.8); Platelet Count 300 K/mm3 (142-424); Red Blood Count 4.41 M/mm3 (4.20-5.40); Red Cell Distribution Width 12.8 % (11.5-17.5); White Blood Count 13.3 K/mm3 (4.8-10.8)
[2018-02-15 07:29] LABS: Albumin Level 3.3 gm/dL (3.4-5.0); Albumin/Globulin Ratio 0.8 (1.1-1.8); Anion Gap 15.2 mEq/L (5-15); Bilirubin,Total 0.3 mg/dL (0.2-1.0); Calcium 9.3 mg/dL (8.5-10.1); Globulin 3.9 gm/dl (1.3-3.2); Potassium 4.2 mmoL/L (3.5-5.1); Total Protein,Serum 7.2 gm/dL (6.4-8.2)
--- NOTE | 2018-02-15 08:08 | Progress Note ---
Internal Medicine - PN: Subj *Date: 02/15/18 *Time: 08:07 Interval history: Overnight patient did well except for pain, she describes pain around her incision sites as well as in the left upper quadrant and in the epigastric area. She has tolerated a couple bites of toast. Surgical note and consultation reviewed and appreciated. Exam Vital signs and Labs for Last 24 Hours: Temp Pulse Resp BP Pulse Ox 98.6 F 93 H 18 143/95 97 02/15/18 07:57 02/15/18 07:57 02/15/18 07:57 02/15/18 07:57 02/15/18 07:57 Laboratory Results - last 24 hr 02/14/18 08:00: WBC 16.9 H, RBC 4.46, Hgb 13.3, Hct 42.4, MCV 95.0, MCH 29.8, MCHC 31.4 L, RDW 12.8, Plt Count 265 D, MPV 8.2, Neut % (Auto) 63.2, Lymph % ( Auto) 30.0, [place] % (Auto) 5.4, Eos % (Auto) 0.9, Baso % (Auto) 0.5, Neut # (Auto ) 10.7 H, Lymph # (Auto) 5.1 H, [place] # (Auto) 0.9, Eos # (Auto) 0.2, Baso # ( Auto) 0.1, Total Counted 100, Neutrophils % (Manual) 61, Lymphocytes % (Manual) 30, Monocytes % (Manual) 9, Platelet Estimate Normal, Tear Drop Cells 1+, Stomatocytes 1+ 02/14/18 08:00: Sodium 141, Potassium 4.3, Chloride 107, Carbon Dioxide 26, Anion Gap 12.3, BUN 8, Creatinine 0.78, Estimated Creat Clear 109, Estimated GFR 92, Est GFR ( Amer) 111, Glucose 97, Calcium 8.8, Total Bilirubin 0.2 , AST 7 L, ALT 26, Alkaline Phosphatase 53, Total Protein 6.9, Albumin 3.3 L, Globulin 3.6 H, Albumin/Globulin Ratio 0.9 L 02/15/18 06:40: Sodium 142, Potassium 4.2, Chloride 106, Carbon Dioxide 25, Anion Gap 15.2 H, BUN 6 L, Creatinine 0.68, Estimated Creat Clear 125, Estimated GFR 107, Est GFR ( Amer) 130, Glucose 115 H, Calcium 9.3, Total Bilirubin 0.3, AST 37 D, ALT 62 D, Alkaline Phosphatase 84, Total Protein 7.2, Albumin 3.3 L, Globulin 3.9 H, Albumin/Globulin Ratio 0.8 L 02/15/18 07:10: WBC 13.3 H, RBC 4.41, Hgb 13.3, Hct 41.5, MCV 94.2, MCH 30.2, MCHC 32.1, RDW 12.8, Plt Count 300, MPV 7.8, Neut % (Auto) 76.0, Lymph % (Auto) 19.3, [place] % (Auto) 4.3, Eos % (Auto) 0.2, Baso % (Auto) 0.2, Neut # (Auto) 10.1 H, Lymph # (Auto) 2.6, [place] # (Auto) 0.6, Eos # (Auto) 0.0, Baso # (Auto) 0.0 I & O for Last 24 hours: Intake & Output 02/12/18 02/13/18 02/14/18 02/15/18 11:59 11:59 11:59 11:59 Intake Total 2573 / 2573 1360 / 1360 Output Total 600 / 600 Balance 2573 / 2573 760 / 760 Weight 290 lb 4 oz Narrative: Patient is in no distress until she begins discussing her pain. Her heart rate is regular and her lungs are clear. She has no rash. Her abdomen is positive bowel sounds and is soft but has intense subjective tenderness in the upper quadrants bilaterally in the epigastric area. Assessment and Plan (1) Abdominal pain Current visit: Yes Status: Acute Qualifiers: Abdominal location: right upper quadrant Qualified Code(s): R10.11 - Right upper quadrant pain Category: Medical Code(s): R10.9 - Unspecified abdominal pain (2) Biliary sludge Current visit: Yes Status: Acute Category: Medical Code(s): K83.8 - Other specified diseases of biliary tract (3) RUQ pain Current visit: Yes Status: Acute Category: Medical Code(s): R10.11 - Right upper quadrant pain - Assessment and plan all Dx Assessment and Plan for all problems:: I reviewed patient's studies with her and informed her that her EGD was essentially normal, CT scanning showed possible cecal thickening of uncertain etiology that would require GI evaluation and endoscopy but certainly did not seem to be the source of her pain. We discussed her gallbladder pathology and the slightly enlarged appearance of the gallbladder surgically. If she can advance diet would consider discharge home later today or tomorrow. GI follow-up as necessary.
--- NOTE | 2018-02-15 13:30 | Discharge Summary ---
General - General Admission date:: 02/14/18 Discharge date: 02/15/18 HPI HPI: This is a 22-year-old female seen in consultation from Dr. Weinberg for evaluation regarding upper abdominal pain. Below is forwarded from her history and physical HPI: 22-year-old white female with no past medical history, who woke up at 5 AM yesterday with intense abdominal pain that awoke her from sleep. She thought she had some type of stomach viral infection and went to work but the pain became intolerable. She did not have vomiting but has significant nausea with cramping type right and left upper quadrant pain. No diarrhea. The pain became worse, and she came to the emergency department late last night. CT scan showed no evidence of cholelithiasis. She had elevated white count, but otherwise no electrolyte disturbances. She was admitted to hospital for pain control and further evaluation. This morning she continues to be uncomfortable but without fever. Note: Patient is subsequently undergone a right upper quadrant ultrasound. She has some biliary sludge, but no evidence of gallstones, pericholecystic fluid, gallbladder wall thickening, or biliary dilatation. Hospital Course Hospital Course: Patient was admitted as noted in my H&P. Underwent several tests including EGD which was nondiagnostic, repeat CT with contrast which showed evidence of some cecal thickening, and then a cholecystectomy which revealed an enlarged gallbladder but not signify early disease. The cholecystectomy resolved her right upper quadrant pain but she continued to have some left-sided flank and lower quadrant pain but had improved from an ability to eat and had resolved leukocytosis. She will be discharged home today proton pump inhibitors and Reglan, she will follow-up with Dr. Abraham for postoperative care, her regular provider in [place] and she will need to obtain GI consultation appointment for the cecal thickening and needs to have a colonoscopy in the very near future. Objective Vital signs: Temp Pulse Resp BP Pulse Ox 98.2 F 84 18 138/82 98 02/15/18 12:00 02/15/18 12:00 02/15/18 12:00 02/15/18 12:02/15/18 12:00 Narrative: Patient's alert on discharge exam, oropharynx clear. Lungs clear. Eating and drinking well. Good hydration status. Pulse rate regular. Vital signs reviewed. Abdomen is soft, surgical incision sites look great. She has tenderness mostly in the left upper quadrant into the mid abdomen but no rebound , guarding or peritoneal signs. Results Labs on day of discharge: Labs from last 24 hours 02/15/18 02/15/18 07:10 06:40 WBC 13.3 H RBC 4.41 Hgb 13.3 Hct 41.5 MCV 94.2 MCH 30.2 MCHC 32.1 RDW 12.8 Plt Count 300 MPV 7.8 Neut % (Auto) 76.0 Lymph % (Auto) 19.3 [place] % (Auto) 4.3 Eos % (Auto) 0.2 Baso % (Auto) 0.2 Neut # (Auto) 10.1 H Lymph # (Auto) 2.6 [place] # (Auto) 0.6 Eos # (Auto) 0.0 Baso # (Auto) 0.0 Sodium 142 Potassium 4.2 Chloride 106 Carbon Dioxide 25 Anion Gap 15.2 H BUN 6 L Creatinine 0.68 Estimated Creat Clear 125 Estimated GFR 107 Est GFR ( Amer) 130 Glucose 115 H Calcium 9.3 Total Bilirubin 0.3 AST 37 D ALT 62 D Alkaline Phosphatase 84 Total Protein 7.2 Albumin 3.3 L Globulin 3.9 H Albumin/Globulin Ratio 0.8 L DS: Diagnosis - Discharge Diagnosis (1) Abdominal pain Status: Chronic (2) Biliary sludge Status: Resolved (3) RUQ pain Status: Resolved Discharge Plan - Patient Discharge Instructions ACTIVITY: Continue current activity DIET: low fat, low cholesterol - Follow up Plan Follow up with: Rene Abraham MD [Staff Physician] - (1-2 weeks) Disposition: Home, Self-Shelter Medications: Home Medications Medication Instructions Recorded Confirmed Type Norethindrone-E.estradiol-Iron 1 tab PO DAILY 02/13/18 02/13/18 History [Microgestin Fe 1-20 Tablet] Prescriptions/Medication Reconciliation: New Omeprazole [Omeprazole 20mg Capsule] 20 mg PO BID #60 cap Metoclopramide HCl [Reglan 5mg Tablet] 5 mg PO ACHS 30 Days #120 tab Continue Norethindrone-E.estradiol-Iron [Microgestin Fe 1-20 Tablet] 1 tab PO DAILY
== END 2018-02-15 14:57 | disposition home or self-care (01) ==
LOC: ER 21:44 → 2ND 21:44
PROVIDERS: ADMIT Internal Medicine Adolescent Medicine; ATTEND Internal Medicine Adolescent Medicine
CPT/HCPCS: 36415; 71020; 71046; 74176; 74177; 76705; 80053; 81001; 81025; 82150; 83690; 83735; 84484; 85007; 85025; 93005; 94760; 94761; 96365; 96366; 96375; 99285; G0378; J1335; J2405; J2710; Q9967

== ENCOUNTER → 2019-07-04 15:20 | Outpatient (CLI) | payer BC, SELFPAY ==
--- NOTE | 2019-07-04 15:25 | US_ITS ---
PROCEDURE: US TRANSVAGINAL CLINICAL INDICATION: DYSPAREUNIA COMPARISON: No exams were available for comparison FINDINGS: The uterus has an unremarkable appearance with a combined endometrial thickness of 5 mm. No adnexal mass or cul-de-sac fluid. There are small bilateral ovarian follicles. No cul-de-sac fluid evident IMPRESSION: Negative pelvic ultrasound Dictated by: Santino Loomis MD 07/04/2019 16:03 Electronically signed by Santino Loomis MD in [place] 07/04/2019 16:03
== END ==
PROVIDERS: PCP Nurse Practitioner Family; Visit Provider Nurse Practitioner Family
DX: N94.10 Unspecified dyspareunia (principal)
CPT/HCPCS: 76830

== ENCOUNTER 2021-03-19 11:41 | Emergency (ER) | payer OTHER, SELFPAY ==
[2021-03-19 11:45] VITALS: BP 147/76; PULSE 109; RESP 20; TEMP 37.3; O2SAT 97; BMI 44.7
--- NOTE | 2021-03-19 12:15 | PC.NURSE ---
PATIENT SENT TO ER PER Siddharth TUCKER APRN FOR FURTHER EVALUATION. REPORT GIVEN BY Siddharth TUCKER APRN TO Maíra SOLORZANO RN
[2021-03-19 12:32] VITALS: BP 175/80; PULSE 92; RESP 16; TEMP 36.6; O2SAT 97; BMI 45.4
--- NOTE | 2021-03-19 12:42 | HMH.EDGENADL ---
ED Disposition Clinical Impression: Missed Disposition: Home, Self-Care Condition on Discharge: Fair Instructions: DI for Miscarriage Additional Instructions: See Dr. Crenshaw in the office at 8 AM on 03/22/2021 at 8 AM. Pelvic rest, no intercourse, no tampons. Go to the emergency department at [facility] if bleeding begins and using more than 2 pads per hour for 2 straight hours, or if temperature greater than 100.4 degrees. Referrals: Tiny Lowery [Primary Care Provider] - - Critical Care Critical Care Time: No Attestation: On 03/19/21, the high probability of a clinically significant, sudden or life threatening deterioration of the following system(s) required my full and direct attention, intervention and personal management. The time I documented below is in addition to time spent performing reported procedures but includes the following listed in this critical care notation. Medical Decision Making - Dhruv Inquiry Pt receiving controlled substance: No Vital Signs: 03/19/21 11:45 03/19/21 12:32 Temperature 99.1 F 97.8 F Temperature Source Oral Oral Pulse Rate [Left Brachial] 109 H 92 H Respiratory Rate 20 16 Blood Pressure [Left Arm] 147/76 H 175/80 H Blood Pressure Mean [Left Arm] 99 111 Blood Pressure Source [Left Arm] Automatic Cuff Blood Pressure Position [Left Arm] Sitting 02 Sat by Pulse Oximetry 97 97 Oxygen Delivery Method Room Air Room Air - Lab Data Lab Results 03/19/21 11:55: Urine HCG, Qual Positive 03/19/21 11:55: Urine Color Yellow, Urine Appearance Clear, Urine pH 6.0, Ur Specific [place] 1.025, Urine Protein Negative, Urine Glucose (UA) Negative, Urine Ketones Negative, Urine Blood Trace-i, Urine Nitrate Negative, Urine Bilirubin Negative, Urine Urobilinogen 0.2, Ur Leukocyte Esterase Negative, Urine RBC Occasional, Urine WBC 3-5, Ur Squamous Epith Cells 3-5, Urine Bacteria None 03/19/21 12:50: HCG, Quant 8490 H 03/19/21 12:50: WBC 8.4, RBC 4.43, Hgb 13.4, Hct 39.9, MCV 90.1, MCH 30.3, MCHC 33.6, RDW 13.9, Plt Count 252, MPV 7.9, Neut % (Auto) 52.5, Lymph % (Auto) 38.9, [place] % (Auto) 5.6, Eos % (Auto) 2.0, Baso % (Auto) 1.0, Neut # (Auto) 4.4, Lymph # (Auto) 3.3, [place] # (Auto) 0.5, Eos # (Auto) 0.2, Baso # (Auto) 0.1 03/19/21 12:50: Sodium 141, Potassium 4.1, Chloride 108 H, Carbon Dioxide 24, Anion Gap 13.1, BUN 7, Creatinine 0.70, Estimated Creat Clear 117, Estimated GFR 100, Est GFR ( Amer) 121, Glucose 98, Calcium 9.4 03/19/21 13:08: Urine Color Yellow, Urine Appearance Clear, Urine pH 5.5, Ur Specific [place] 1.020, Urine Protein Negative, Urine Glucose (UA) Negative, Urine Ketones Trace, Urine Blood Negative, Urine Nitrate Negative, Urine Bilirubin Negative, Urine Urobilinogen 0.2, Ur Leukocyte Esterase Negative Result diagrams: 03/19/21 12:50 03/19/21 12:50 - US Data US Images: Pelvis Findings Narrative: As per [facility] procedure, ultrasound report received from video game repair technician: 6-week 10-day fetus without cardiac activity consistent with missed - Physician Consults Physician Consulted: Den Time: 15:40 Reason -: Obstetrical Eval/Care Comment/Response: Patient is blood type is a positive, no need for RhoGam. Follow-up with her in the office at 8 AM on 03/22/2021 at 8 AM. Pelvic rest, no intercourse. Go to the emergency department at [facility] if bleeding and using more than 2 pads per hour for 2 straight hours or if temperature greater than 100.4 degrees. General Adult HPI - General Stated complaint: 10weeks preg, having lower abd pain Time Seen by Provider: 03/19/21 12:42 Mode of Arrival: Ambulatory Source of Information: Patient Limitations: No Limitations Description of Symptoms (Recalled from ER Triage Doc. by RN): PATIENT IS 10 WEEKS WITH SHARP, BILATERAL LOWER ABDOMINAL PAIN SINCE YESTERDAY. C/O NAUSEA, BUT HAS HAD THAT BEFORE THE PAIN BEGAN. - History of Present Illness HPI narrative: Prima
--- NOTE | 2021-03-19 13:02 | US_ITS ---
PROCEDURE INFORMATION: Exam: US , Transvaginal Exam date and time: 03/19/2021 1:02 PM Age: 26 years old Clinical indication: complicated by abdominal or pelvic pain; Lower; First trimester; Gestational age or lmp: Lmp: 01/01/2021; ; Patient HX: Pelvic pain with , rule out ectopic; Additional info: Lower abdo pain, , R/O ectopic TECHNIQUE: Imaging protocol: Real-time transvaginal obstetrical ultrasound of the maternal pelvis with image documentation. Transvaginal imaging was used for better evaluation of the fetus, adnexa, and/or cervix. COMPARISON: US TRANSVAGINAL 07/04/2019 3:19 PM FINDINGS: Gestation: Intrauterine gestational sac with pole. No cardiac activity identified compatible with demise. BIOMETRY: Gestational age (AUA): Gestational age by LMP is 11 weeks. Gestational age by gestational sac is 6 weeks 2 days. MATERNAL: Right adnexa: Right ovary measures 2.7 x 1.9 x 2.4 cm. Blood flow identified. Left adnexa: Left ovary measures 1.9 x 1.2 x 2.1 cm. Blood flow identified. Other findings: Beta hCG measures 8490. IMPRESSION: Intrauterine gestational sac with pole. No cardiac activity identified compatible with demise. Findings were discussed with SELENA Lakhani on 03/19/2021 3:38 PM EDT
--- NOTE | 2021-03-19 13:05 | PC.NURSE ---
DONI IN RADIOLOGY NOTIFIED OF ULTRASOUND ORDER AND THE NEED TO CALL IN THE GALVANIZER ZINC VACUUM TESTER CANS
[2021-03-19 13:07] LABS: Chloride 108 mmol/L (98-107); Sodium 141 mmol/L (136-145)
[2021-03-19 13:08] LABS: Potassium 4.1 mmoL/L (3.5-5.1)
[2021-03-19 13:10] LABS: Apearance,Urine Clear (Clear); Bilirubin,Urine Negative (Negative); Blood, Urine Negative (Negative); Color,Urine Yellow (Yellow); Glucose,Urine (UA) Negative (Negative); Ketones,Urine TRACE (Negative); PH,Urine 5.5 (5.0-8.5); Protein,Urine Negative (Negative); UTC Leukocyte Esterase,Urine Negative (Negative); UTC Nitrate,Urine Negative (Negative); Urobilinogen,Urine 0.2 EU/dl (0.2)
[2021-03-19 13:10] LABS: Blood Urea Nitrogen 7 mg/dl (7-17); Creatinine Clearance Estimated 117 mL/min (50-200); Estimated Glomerular Filt Rate 100 ml/min (>60); GFR (African American) 121 ML/MIN (>60)
[2021-03-19 13:11] LABS: Anion Gap 13.1 mEq/L (5-15); Calcium 9.4 mg/dl (8.4-10.2); Carbon Dioxide 24 mmol/L (22.0-30.0); Glucose 98 mg/dl (74-100)
[2021-03-19 13:19] LABS: Microscopic, Urine URINE MICROSCOPIC (MICROSCOPIC)
[2021-03-19 13:20] LABS: Urine Pregnancy, HCG Qual. Positive (Negative)
[2021-03-19 13:20] LABS: Basophils # 0.1 K/mm3 (0-0.2); Eosinophils # 0.2 K/mm3 (0.0-0.4); Hematocrit 39.9 % (37.0-47.0); Hemoglobin 13.4 g/dL (12.2-16.2); Lymphocytes # 3.3 K/mm3 (0.7-4.5); Lymphocytes % 38.9 % (10-50); Mean Corpuscular HGB Conc 33.6 g/dL (31.8-35.4); Mean Corpuscular Hemoglobin 30.3 pg (27.0-31.2); Mean Corpuscular Volume 90.1 fl (81-99); Mean Platelet Volume 7.9 fl (7.4-10.4); Monocytes # 0.5 K/mm3 (0.1-1.0); Monocytes % 5.6 % (1.7-9.3); Neutrophils # 4.4 K/mm3 (1.8-7.8); Neutrophils % 52.5 % (37.0-80.0); Platelet Count 252 K/mm3 (142-424); Red Blood Count 4.43 M/mm3 (4.20-5.40); Red Cell Distribution Width 13.9 % (11.5-17.5); White Blood Count 8.4 K/mm3 (4.8-10.8)
[2021-03-19 13:21] LABS: Appearance,Urine CLEAR (Clear); Bilirubin,Urine Negative (Negative); Blood, Urine TRACE-I (Negative); Color,Urine YELLOW (Yellow); Glucose,Urine (UA) Negative (Negative); Ketones,Urine Negative (Negative); Leukocyte Esterase,Urine Negative (Negative); Nitrate,Urine Negative (Negative); Protein,Urine Negative (Negative); Specific Gravity, Urine 1.025 (1.005-1.030); Urobilinogen,Urine 0.2 EU/dl (0.2)
[2021-03-19 13:22] LABS: HCG,Quantitative 8490 mIU/ml (0-5.42)
[2021-03-19 13:27] LABS: RBC,Urine Occasional #/hpf (0-3)
--- NOTE | 2021-03-19 15:15 | PC.NURSE ---
predictive maintenance technician gave report to Raman ADORNO of ultrasound, made aware. Waiting on official reading from [facility] at this time
[2021-03-19 16:24] VITALS: BP 155/101; PULSE 88; RESP 18; TEMP 36.8; O2SAT 98
== END 2021-03-19 16:27 | disposition home or self-care (01) ==
LOC: UTC 11:47 → ER 12:16
PROVIDERS: Nurse Practitioner Family; Emergency Provider Emergency Medicine; PCP Nurse Practitioner Family
DX: O02.1 Missed abortion (principal); F17.210 Nicotine dependence, cigarettes, uncomplicated
CPT/HCPCS: 76817; 80048; 81001; 81003; 81025; 84702; 85025; 99282

== ENCOUNTER → 2021-03-22 10:49 | Outpatient (CLI) | payer OTHER, SELFPAY ==
[2021-03-22 18:25] LABS: Anion Gap 14.3 mEq/L (5-15); Blood Urea Nitrogen 9 mg/dl (7-17); Calcium 8.9 mg/dl (8.4-10.2); Carbon Dioxide 23 mmol/L (22.0-30.0); Chloride 105 mmol/L (98-107); Estimated Glomerular Filt Rate 120 ml/min (>60); GFR (African American) 145 ML/MIN (>60); Glucose 88 mg/dl (74-100); Potassium 4.3 mmoL/L (3.5-5.1); Sodium 138 mmol/L (136-145)
[2021-03-22 21:32] LABS: Basophils # 0.1 K/mm3 (0-0.2); Basophils % 0.7 % (0.1-2.0); Eosinophils # 0.2 K/mm3 (0.0-0.4); Hematocrit 41.5 % (37.0-47.0); Hemoglobin 13.2 g/dL (12.2-16.2); Lymphocytes # 3.2 K/mm3 (0.7-4.5); Lymphocytes % 39.2 % (10-50); Mean Corpuscular HGB Conc 31.8 g/dL (31.8-35.4); Mean Corpuscular Hemoglobin 29.5 pg (27.0-31.2); Mean Corpuscular Volume 92.9 fl (81-99); Monocytes # 0.7 K/mm3 (0.1-1.0); Monocytes % 8.4 % (1.7-9.3); Neutrophils # 4.1 K/mm3 (1.8-7.8); Neutrophils % 49.7 % (37.0-80.0); Platelet Count 272 K/mm3 (142-424); Red Blood Count 4.47 M/mm3 (4.20-5.40); Red Cell Distribution Width 12.9 % (11.5-17.5); White Blood Count 8.2 K/mm3 (4.8-10.8)
== END ==
PROVIDERS: Visit Provider Nurse Practitioner Obstetrics & Gynecology
DX: Z01.818 Encounter for other preprocedural examination (principal); Z11.52 Encounter for screening for COVID-19; O03.9 Complete or unspecified spontaneous abortion without complication
CPT/HCPCS: 36415; 80048; 85025; U0003

== ENCOUNTER 2021-03-23 07:25 | Day surgery (SDC) | payer OTHER, SELFPAY ==
[2021-03-22 10:03] VITALS: BMI 45.8
[2021-03-23] VITALS (9 sets, daily range): BP systolic 121–157; BP diastolic 58–86; PULSE 77–91; RESP 12–18; TEMP 36.2–37; O2SAT 93–100
--- NOTE | 2021-03-23 08:24 | P.PN_ITS ---
[facility] Anesthesia Checklist - Patient Identification Patient Identification: Arm Band - Structural Data Admitted From: Home Planned Operative Procedure/s: D&E Consent for Planned Operative Procedure(s) Verified: Yes Verified Documents: Surgical Consent, History and Physical - NPO Status Verified Time NPO: 00:00 - Additional verifications Anesthesia Reactions: No Hx Blood Transfusions: No Blood Transfusion Reaction: No - Airway Assessment C-Spine Mobility Assessed: Yes (mp2) TMJ Mobility Assessed: Yes Dentition: Good Dentition - Neurological Assessment Level of Consciousness: Awake, Alert - Anesthesia Plan Anesthesia Risk discussed: Yes Anesthesia Plan: Verified ASA Class: III Anesthesia Type: General [facility] History I have reviewed the patient's past medical history: Yes Medical History: Denies:: Cancer, Diabetes Mellitus Type 1, Diabetes Mellitus Type 2, Hypertension, Internal Pacemaker, MRSA, Seizures *Have you ever received a pneumonia vaccine?: No *Have you received a flu vaccine this season?: No Other Medical History: Reports: Hypothyroidism. Denies: Blood Transfusion Reaction Anesthesia experience/problems:: nac Other Surgeries: Yes: Cholecystectomy. No: Pacemaker Amputation: No Fractures: No - *Social History Last grade of school completed: High school graduate Smoking Status: Former smoker Tobacco Type: cigarettes # Packs/Day (cigarettes): 1 #Yrs smoked (if former smoker): 8 Alcohol Intake: never Substance Use Type: marijuana *Occupational Status:: employed Housing: house Household Members: spouse *Travel in the last 8 weeks: None Family Hx:: Diabetes, Hyperlipidemia, Hypertension, Stroke OPERATING SYSTEMS SPECIALIST history: Polycystic Ovary Syndrome
--- NOTE | 2021-03-23 09:21 | P.OP_ITS ---
Date of procedure: 03/23/21 Pre-op Diagnosis:: Missed Post-op Diagnosis:: Missed Procedure performed:: Dilation and evacuation with Gallia suction Surgeon:: Johnny He MD AUTOMOBILE CONTRACT CLERK:: Deni Galvez Anesthesia: LMA Estimated blood loss (mL): 100 Clinical Note:: She is a 26-year-old 1 para 0 at 10 weeks gestational age. She has had 2 ultrasounds that showed no heart rate activity. The fetus was about 6 weeks along. As result of that she was offered dilation and evacuation. Operative findings:: She had a normal anteverted uterus. There were products of conception within the uterine cavity consistent with a 6-week fetus. Operative note:: She was taken to the operating room where LMA anesthesia was found be adequate. She was prepped draped normal sterile fashion lithotomy position. Weighted speculum placed in vagina and the anterior of the cervix was grasped with a tenaculum. Miguel dilators were used to dilate the cervix to approximately 9 mm. Then using a curved Gallia 9 mm suction curette I evacuated the uterine contents. This was followed by gentle curettage. She tolerated seizure well and was taken to the recovery room in excellent condition. All sponge, instrument and needle counts were correct. The estimated blood loss was approximately 100 cc. Condition: stable Disposition: PACU Specimens:: Retained products of conception Complications:: None
--- NOTE | 2021-03-23 09:23 | P.PN_ITS ---
[facility] Anesthesia Record Part I Intake, IV Amount: 500 Estimated blood loss (mL): 100 Urine output (mL): 0 Blood Pressure: 123/83 SaO2: 93 Pulse Rate: 88 Respiratory Rate: 12 Temperature: 97.1 F Patient is:: Drowsy, Oral/Nasal airway Stable to PACU at:: 09:20
--- NOTE | 2021-03-23 10:16 | PC.NURSE ---
pt on bedpan
--- NOTE | 2021-03-24 10:11 | HMH.ANESII ---
[facility] Anesthesia Record Part II Discharge Time: 09:50 Destination: Surgical Day Care (OP Surgery) PACU nurse assessment reviewed?: Yes Patient Condition:: Good Anesthesia Complications:: None Swallowing reflex intact?: Yes Cyanosis?: No Blood Pressure: 133/80 Pulse Rate: 81 Temperature: 97.3 F Mental Status: Alert & Oriented Pain level:: 2 Nausea and/or vomitting:: None Intake, IV Amount: 0
[2021-03-24 10:12] VITALS: BP 133/80; PULSE 81; TEMP 36.3
== END 2021-03-23 10:51 | disposition home or self-care (01) ==
PROVIDERS: PCP Nurse Practitioner Family; Visit Provider Nurse Practitioner Obstetrics & Gynecology
PROC: (CPT 59820; principal; 2021-03-23 09:00)
DX: O03.9 Complete or unspecified spontaneous abortion without complication (principal)
CPT/HCPCS: 59820; J2405

== ENCOUNTER → 2021-08-23 16:53 | Outpatient (CLI) | payer OTHER, SELFPAY ==
[2021-08-23 19:24] LABS: HCG,Quantitative 1543 mIU/ml (0-5.42)
== END ==
PROVIDERS: Visit Provider Obstetrics & Gynecology
DX: Z34.90 Encounter for supervision of normal pregnancy, unspecified, unspecified trimester (principal)
CPT/HCPCS: 36415; 84702

== ENCOUNTER → 2021-08-25 16:27 | Outpatient (CLI) | payer OTHER, SELFPAY ==
[2021-08-25 18:43] LABS: HCG,Quantitative 3429 mIU/ml (0-5.42)
== END ==
PROVIDERS: Visit Provider Obstetrics & Gynecology
DX: Z34.90 Encounter for supervision of normal pregnancy, unspecified, unspecified trimester (principal)
CPT/HCPCS: 36415; 84702

== ENCOUNTER → 2021-09-07 13:43 | Outpatient (CLI) | payer OTHER, SELFPAY ==
--- NOTE | 2021-09-07 13:44 | US_ITS ---
PROCEDURE: US OB <= 14 WEEKS FETUS CLINICAL INDICATION: Dates COMPARISON: US US OB TRANSVAGINAL from 03/19/2021 FINDINGS: An intrauterine gestational sac is present with a pole with a crown-rump length of 0.84cm correlating to gestational age of 6weeks 6days. heart tones are present with an FHR of 124bpm. Yolk sac is noted. Unremarkable adnexa. IMPRESSION: Live IUP at 6 weeks 6 days Estimated due date by Ultrasound is 04/27/2022 Dictated by: Santino Loomis MD 09/08/2021 09:33 Santino Loomis MD in [place] 09/08/2021 09:33
== END ==
PROVIDERS: PCP Nurse Practitioner Family; Visit Provider Obstetrics & Gynecology
DX: Z34.90 Encounter for supervision of normal pregnancy, unspecified, unspecified trimester (principal)
CPT/HCPCS: 76801

== ENCOUNTER → 2021-09-13 12:00 | Outpatient (CLI) | payer OTHER, SELFPAY ==
[2021-09-13 12:27] LABS: Basophils # 0.1 K/mm3 (0-0.2); Basophils % 1.1 % (0.1-2.0); Eosinophils # 0.1 K/mm3 (0.0-0.4); Eosinophils % 0.8 % (0.1-12.0); Hematocrit 42.4 % (37.0-47.0); Hemoglobin 13.6 g/dL (12.2-16.2); Lymphocytes # 3.1 K/mm3 (0.7-4.5); Lymphocytes % 27.1 % (10-50); Mean Corpuscular Hemoglobin 31.4 pg (27.0-31.2); Mean Corpuscular Volume 98.1 fl (81-99); Mean Platelet Volume 8.7 fl (7.4-10.4); Monocytes # 0.5 K/mm3 (0.1-1.0); Monocytes % 4.4 % (1.7-9.3); Neutrophils # 7.6 K/mm3 (1.8-7.8); Neutrophils % 66.4 % (37.0-80.0); Platelet Count 306 K/mm3 (142-424); Red Blood Count 4.32 M/mm3 (4.20-5.40); Red Cell Distribution Width 13.4 % (11.5-17.5); White Blood Count 11.4 K/mm3 (4.8-10.8)
[2021-09-14 07:11] LABS: HIV Screen 4th Generation wRfx Non Reactive (Non Reactive)
[2021-09-14 09:13] LABS: Progesterone 10.1 ng/mL (.)
[2021-09-14 11:47] LABS: Rapid Plasma Reagin Ab Titer Non Reactive (NonRea<1:1)
[2021-09-14 12:10] LABS: Hepatitis B Surface Antigen Negative (Negative); Hepatitis C Antibody <0.1 s/co ratio (0.0-0.9)
[2021-09-15 06:10] LABS: Rubella Antibodies, IgG 1.08 index (Immune >0.99)
== END ==
PROVIDERS: Visit Provider Obstetrics & Gynecology
DX: Z34.90 Encounter for supervision of normal pregnancy, unspecified, unspecified trimester (principal)
CPT/HCPCS: 36415; 84144; 85025; 86592; 86703; 86762; 86850; 87340; 87380; G0432

== ENCOUNTER → 2021-10-17 10:36 | Outpatient (CLI) | payer OTHER, SELFPAY ==
--- NOTE | 2021-10-17 10:36 | US_ITS ---
FINAL REPORT CLINICAL HISTORY: pelvic pain during -- LLQ PAIN FINDINGS: There is a single live intrauterine gestation. Presentation is cephalic. The cervix is closed and measures 3.1 cm. Placenta is posterior. movement is noted. Heart rate is measured at 146 bpm. The limited visualized anatomy appears within normal limits. AMNIOTIC FLUID: Appropriate amount. Right ovary measures 3.1 cm. Left ovary measures 2.8 cm There is no adnexal mass identified. MEASUREMENTS: ULTRASOUND AGE: 13 weeks 0 days. GESTATION AGE: 12 weeks 4 days. ESTIMATED WEIGHT: 61 g GROWTH PERCENTILE: 29% BPD: 2.1 cm consistent with 13 weeks 3 days. OFD: 2.6 cm HC: 7.3 cm consistent with 13 weeks 1 day. AC: 6.1 cm consistent with 13 weeks 0 days. FL: 0.8 cm consistent with 12 weeks 3 days. HC/AC: 1.19 CI: 81% FL/BPD: 37% FL/AC: 12% IMPRESSION: Single living IUP with an ultrasound age of 13 weeks 0 days. No anomalies noted. Reviewed, Interpreted and Dictated by Kory Gonzáles III, MD Transcribed by Raquel Romano Authenticated by Kory Gonzáles III, MD on 10/17/2021 04:12:47 PM [facility]
== END ==
PROVIDERS: PCP Nurse Practitioner Family; Visit Provider Obstetrics & Gynecology
DX: O26.899 Other specified pregnancy related conditions, unspecified trimester (principal); R10.2 Pelvic and perineal pain
CPT/HCPCS: 76817

== ENCOUNTER 2021-10-18 12:35 | Emergency (ER) | payer OTHER, SELFPAY ==
[2021-10-18 12:47] VITALS: BP 149/88; PULSE 118; RESP 18; TEMP 36.9; O2SAT 98; BMI 46.8
--- NOTE | 2021-10-18 12:50 | HMH.EDUTC ---
[facility] Disposition Clinical Impression: Viral syndrome Sinusitis Qualifiers: Sinusitis location: unspecified location Chronicity: acute Recurrence: non-recurrent Qualified Code(s): J01.90 - Acute sinusitis, unspecified Qualifiers: Weeks of gestation: 13 weeks Qualified Code(s): Z3A.13 - 13 weeks gestation of Disposition: Home, Self-Care Condition on Discharge: Good Instructions: DI for Sinusitis Additional Instructions: Drink plenty of fluids. Take tylenol or ibuprofen for pain or fever. Take the medications as directed. Follow up with your regular doctor. GO TO THE ER FOR ANY WORSENING SYMPTOMS Quarantine until you know the results of your covid-19 test. Notify your school or workplace of your results and follow their instructions regarding return to work/school. Prescriptions: Azithromycin [Z-Andrea 250mg Tab*] 250 mg PO UD DOSE PK #6 tab Transmission Status: Pending to [facility] #[id number] Referrals: Tiny Lowery [Primary Care Provider] - Forms: Work/School Release Time of Disposition: 13:19 Medical Decision Making - Medical Records Medical records reviewed: No: I reviewed the patient's medical records. - Dhruv Inquiry Pt receiving controlled substance: No Vital Signs: 10/18/21 12:47 Temperature 98.4 F Temperature Source Oral Pulse Rate [Left] 118 H Respiratory Rate 18 Blood Pressure [Right Arm] 149/88 H Blood Pressure Mean [Right Arm] 108 02 Sat by Pulse Oximetry 98 - Lab Data Lab results reviewed: Yes: I reviewed the patient's lab results. Orders (Tests/Meds): ORDERS Category Date Time Status Full Resp Panel w/COVID ([facility]) Routine Lab 10/18/21 13:15 Ordered Rapid Strep Scrn Group A [Strep Scrn Group A (Rapid)] Lab 10/18/21 12:50 Received Stat [facility] HPI - General Stated complaint: sore throat, vomiting, h/a, congestion Time Seen by Provider: 10/18/21 12:51 - History of Present Illness Provider Complaint: She states that for the past 2 days she has had sinus drainage, sinus congestion, sore throat, nausea from sinus drainage and she has felt bad. She is 13 weeks . She denies any abdominal pain, back pain and urinary complaints. - Related Data Home Medications Medication Instructions Recorded Confirmed Citalopram Hydrobromide 40 mg PO DAILY 09/28/19 10/11/21 [Citalopram HBr] ergocalciferol (vitamin D2) 1,250 1,250 mcg PO WEEKLY cap 03/22/21 10/11/21 mcg (50,000 unit) capsule levothyroxine 75 mcg tablet 75 mcg PO DAILY tab 03/22/21 10/11/21 vit no.95-ferrous 1 tab PO DAILY 09/13/21 10/11/21 fumarate 28 mg-folic acid 800 mcg tablet Previous Rx's Medication Instructions Recorded ondansetron 4 mg disintegrating 4 mg PO Q8H #90 tab 09/01/21 tablet ferrous sulfate 325 mg (65 mg 325 mg PO DAILY #30 tab 09/13/21 iron) tablet promethazine 12.5 mg tablet 12.5 mg PO Q4-6H PRN #30 tab 09/13/21 metronidazole 0.75 % vaginal gel 1 appful VAGINAL DAILY 5 Days #70 g 09/16/21 progesterone micronized 200 mg 200 mg PO HS 30 Days #30 cap 09/16/21 capsule Azithromycin [Z-Andrea 250mg Tab*] 250 mg PO UD DOSE PK #6 tab 10/18/21 Allergies Allergy/AdvReac Type Severity Reaction Status Date / Time acetaminophen Allergy Severe Difficulty Verified 10/11/21 11:37 Swallowing H History - Hepatitis A Screen Attestation statement:: This patient has been screened for Hepatitis A risk factors. I have reviewed the patient's past medical history: Yes Medical History: Denies:: Cancer, Diabetes Mellitus Type 1, Diabetes Mellitus Type 2, Hypertension, Internal Pacemaker, MRSA, Seizures Other Medical History: Reports: Hypothyroidism. Denies: Blood Transfusion Reaction Other Surgeries: Yes: No Previous Surgery, Cholecystectomy. No: Pacemaker Amputation: No Fractures: No Comment: 02/2021 D&E w/marco suction for miscarriage - Social History Smoking Status: Former smoker Tobacco Ty
[2021-10-18 13:33] LABS: Strep Scrn Group A (Rapid) Negative (Negative)
[2021-10-18 13:42] VITALS: BP 149/88; PULSE 118; RESP 18; TEMP 36.9
== END 2021-10-18 13:43 | disposition home or self-care (01) ==
PROVIDERS: Emergency Provider Nurse Practitioner Family; PCP Nurse Practitioner Family
DX: J02.9 Acute pharyngitis, unspecified (principal); J01.90 Acute sinusitis, unspecified; O26.891 Other specified pregnancy related conditions, first trimester; Z3A.13 13 weeks gestation of pregnancy
CPT/HCPCS: 87430; 99203; G0463

== ENCOUNTER → 2021-12-06 14:33 | Outpatient (CLI) | payer OTHER, SELFPAY ==
--- NOTE | 2021-12-06 14:34 | US_ITS ---
FINAL REPORT CLINICAL HISTORY: anatomy scan, OB complete FINDINGS: There is a single live intrauterine gestation. Presentation is cephalic. The cervix is closed and measures 3.3 cm. Placenta is posterior, grade 1. movement is noted. Heart rate is measured at 146 beats per minute. Three-vessel cord with satisfactory umbilical cord insertion. Four-chamber heart is noted. brain and ventricles are unremarkable. Chest and diaphragm are unremarkable. ABDOMEN: Stomach is unremarkable. SPINE: No anomalies identified. Both arms and legs noted. AMNIOTIC FLUID: Appropriate amount. MEASUREMENTS: ULTRASOUND AGE: 19 weeks 3 days. GESTATION AGE: 19 weeks 4 days. ESTIMATED WEIGHT: 284 g GROWTH PERCENTILE: 30 % BPD: 4.5 cm corresponding with 19 weeks 5 days. OFD: 5.9 cm corresponding with 20 weeks 1 days. HC: 16.2 cm corresponding with 19 weeks 1 days. AC: 14.2 cm corresponding with 19 weeks 4 days. FL: 2.9 cm corresponding with 19 weeks 1 days. CEREBELLUM: 1.9 cm corresponding with 19 weeks 3 days. HUMERUS: 2.9 cm corresponding with 19 weeks 4 days. HC/AC: 1.15 CI: 77% FL/BPD: 65% FL/AC: 21% IMPRESSION: Single living IUP with an ultrasound age of 19 weeks 3 days. Reviewed, Interpreted and Dictated by Kory Gonzáles III, MD Transcribed by Raquel Romano Authenticated by Kory Gonzáles III, MD on 12/06/2021 04:31:13 PM [facility]
== END ==
PROVIDERS: PCP Nurse Practitioner Family; Visit Provider Obstetrics & Gynecology
DX: Z34.90 Encounter for supervision of normal pregnancy, unspecified, unspecified trimester (principal)
CPT/HCPCS: 76805

== ENCOUNTER → 2022-01-18 08:04 | Outpatient (CLI) | payer OTHER, SELFPAY ==
[2022-01-18 08:58] LABS: Glucose,Fasting 99 mg/dl (74-100)
[2022-01-18 09:02] LABS: Basophils # 0.1 K/mm3 (0-0.2); Basophils % 0.7 % (0.1-2.0); Eosinophils # 0.1 K/mm3 (0.0-0.4); Eosinophils % 0.6 % (0.1-12.0); Hematocrit 36.2 % (37.0-47.0); Hemoglobin 12.3 g/dL (12.2-16.2); Lymphocytes # 2.6 K/mm3 (0.7-4.5); Lymphocytes % 24.3 % (10-50); Mean Corpuscular Hemoglobin 31.5 pg (27.0-31.2); Mean Corpuscular Volume 92.7 fl (81-99); Mean Platelet Volume 8.7 fl (7.4-10.4); Monocytes # 0.4 K/mm3 (0.1-1.0); Monocytes % 4.1 % (1.7-9.3); Neutrophils # 7.4 K/mm3 (1.8-7.8); Neutrophils % 70.3 % (37.0-80.0); Platelet Count 283 K/mm3 (142-424); Red Cell Distribution Width 13.7 % (11.5-17.5); White Blood Count 10.5 K/mm3 (4.8-10.8)
[2022-01-18 09:24] LABS: Alanine Aminotransferase 15 U/L (12-78); Albumin Level 3.5 g/dl (3.5-5.0); Albumin/Globulin Ratio 1.4 (1.1-1.8); Alkaline Phosphatase 57 U/L (38-126); Aspartate Amino Transferase 20 U/L (14-36); Bilirubin,Total 0.3 mg/dl (0.2-1.3); Blood Urea Nitrogen 5 mg/dl (7-17); Calcium 9.1 mg/dl (8.4-10.2); Carbon Dioxide 22 mmol/L (22.0-30.0); Chloride 108 mmol/L (98-107); Estimated Glomerular Filt Rate 148 ml/min (>60); GFR (African American) 179 ML/MIN (>60); Globulin 2.5 g/dL (1.3-3.2); Glucose 99 mg/dl (74-100); Sodium 137 mmol/L (136-145)
[2022-01-18 09:55] LABS: Thyroid Stimulating Hormone 1.69 uIU/mL (0.465-4.68)
[2022-01-18 10:16] LABS: Glucose 1 Hour 115 mg/dL (74-100)
[2022-01-18 10:31] LABS: Vitamin B12 182 pg/mL (239-931)
== END ==
PROVIDERS: PCP Nurse Practitioner Family; Visit Provider Obstetrics & Gynecology
DX: R51.9 Headache, unspecified (principal); Z34.90 Encounter for supervision of normal pregnancy, unspecified, unspecified trimester; G89.29 Other chronic pain; R53.83 Other fatigue; Z3A.24 24 weeks gestation of pregnancy; Z68.42 Body mass index [BMI] 45.0-49.9, adult; R09.89 Other specified symptoms and signs involving the circulatory and respiratory systems
CPT/HCPCS: 36415; 80053; 82607; 82746; 82951; 84443; 85025

== ENCOUNTER 2022-02-22 17:46 | Outpatient (CLI) | payer OTHER, SELFPAY ==
[2022-02-22 17:58] VITALS: BMI 47.3
[2022-02-22 18:11] LABS: Microscopic, Urine URINE MICROSCOPIC (MICROSCOPIC)
[2022-02-22 18:24] VITALS: BP 141/83; PULSE 82; RESP 17; TEMP 36.8; O2SAT 100; BMI 47.3
[2022-02-22 18:36] LABS: Appearance,Urine CLEAR (Clear); Bilirubin,Urine Negative (Negative); Blood, Urine TRACE-I (Negative); Color,Urine YELLOW (Yellow); Glucose,Urine (UA) Negative (Negative); Ketones,Urine TRACE (Negative); Leukocyte Esterase,Urine TRACE (Negative); Nitrate,Urine Negative (Negative); Protein,Urine TRACE (Negative); Specific Gravity, Urine 1.025 (1.005-1.030); Urobilinogen,Urine 0.2 EU/dl (0.2)
[2022-02-22 18:54] LABS: Amphetamine/Metha Screen,Urine Negative ng/ml (<1000)
[2022-02-22 18:55] LABS: Barbiturates Screen,Urine Negative ng/ml (<200)
[2022-02-22 18:56] LABS: Benzodiazepines Screen,Urine Negative ng/ml (<200); Cannabinoid Screen,Urine Negative ng/ml (<50)
[2022-02-22 18:57] LABS: Cocaine Screen,Urine Negative ng/ml (<300)
[2022-02-22 18:58] LABS: Methadone Screen,Urine Negative ng/ml (<300); Opiate Screen,Urine Negative ng/ml (<300)
[2022-02-22 18:59] LABS: Phencyclidine Screen,Urine Negative ng/ml (<25)
[2022-02-22 19:24] LABS: Bacteria,Urine Trace /lpf
== END 2022-02-22 20:00 | disposition home or self-care (01) ==
LOC: OBOUT 17:48 → OB 17:51
PROVIDERS: PCP Nurse Practitioner Family; Visit Provider Obstetrics & Gynecology
DX: O26.893 Other specified pregnancy related conditions, third trimester (principal); O21.2 Late vomiting of pregnancy; Z3A.30 30 weeks gestation of pregnancy
CPT/HCPCS: 59025; 80305; 81001; 87086; 96365; G0463; J2405

== ENCOUNTER → 2022-03-06 10:11 | Outpatient (CLI) | payer OTHER, SELFPAY ==
--- NOTE | 2022-03-06 10:13 | US_ITS ---
FINAL REPORT CLINICAL HISTORY: Growth and JEANIE FINDINGS: There is a single live intrauterine gestation. Presentation is cephalic. Placenta is posterior. Heart rate is 123 beats per minute. AMNIOTIC FLUID: Appropriate amount JEANIE: 14 cm MEASUREMENTS: ULTRASOUND AGE: 32 weeks 1 days. GESTATION AGE: 32 weeks 4 days. ESTIMATED WEIGHT: 1893 g GROWTH PERCENTILE: 25% BPD: 8 cm corresponding with 32 weeks 3 days. OFD: 10.2 cm corresponding with 31 weeks 5 days. HC: 28.9 cm corresponding with 31 weeks 6 days. AC: 28.2 cm corresponding with 32 weeks 2 days. FL: 6.1 cm corresponding with 31 weeks 6 days. HC/AC: 1.02 CI: 79% FL/BPD: 76% FL/AC: 22% IMPRESSION: Single living IUP with an ultrasound age of 32 weeks 1 days. JEANIE of 14 cm cm Reviewed, Interpreted and Dictated by Kory Gonzáles III, MD Transcribed by Raquel Romano Authenticated and [facility]
== END ==
PROVIDERS: PCP Nurse Practitioner Family; Visit Provider Obstetrics & Gynecology
DX: O26.10 Low weight gain in pregnancy, unspecified trimester (principal)
CPT/HCPCS: 76816

== ENCOUNTER 2022-03-23 11:56 | Outpatient (CLI) | payer OTHER, SELFPAY ==
[2022-03-23 14:21] VITALS: BMI 46.6
[2022-03-23 14:29] LABS: Basophils % 0.3 % (0.1-2.0); Eosinophils # 0.1 K/mm3 (0.0-0.4); Eosinophils % 0.7 % (0.1-12.0); Hematocrit 35.1 % (37.0-47.0); Hemoglobin 11.7 g/dL (12.2-16.2); Lymphocytes # 0.5 K/mm3 (0.7-4.5); Lymphocytes % 8.1 % (10-50); Mean Corpuscular HGB Conc 33.3 g/dL (31.8-35.4); Mean Corpuscular Hemoglobin 30.4 pg (27.0-31.2); Mean Corpuscular Volume 91.3 fl (81-99); Mean Platelet Volume 10.1 fl (7.4-10.4); Monocytes # 0.5 K/mm3 (0.1-1.0); Neutrophils # 5.6 K/mm3 (1.8-7.8); Neutrophils % 82.9 % (37.0-80.0); Platelet Count 270 K/mm3 (142-424); Red Blood Count 3.85 M/mm3 (4.20-5.40); Red Cell Distribution Width 14.2 % (11.5-17.5); White Blood Count 6.7 K/mm3 (4.8-10.8)
[2022-03-23 14:40] VITALS: BP 108/55; PULSE 115; RESP 16; TEMP 36.8; O2SAT 98; BMI 46.6
[2022-03-23 14:44] LABS: Alanine Aminotransferase 16 U/L (12-78); Albumin Level 3.3 g/dl (3.5-5.0); Albumin/Globulin Ratio 1.2 (1.1-1.8); Alkaline Phosphatase 89 U/L (38-126); Aspartate Amino Transferase 40 U/L (14-36); Bilirubin,Total 0.5 mg/dl (0.2-1.3); Blood Urea Nitrogen 7 mg/dl (7-17); Carbon Dioxide 20 mmol/L (22.0-30.0); Chloride 105 mmol/L (98-107); Creatinine Clearance Estimated 136 mL/min (50-200); Estimated Glomerular Filt Rate 119 ml/min (>60); GFR (African American) 144 ML/MIN (>60); Globulin 2.8 g/dL (1.3-3.2); Glucose 89 mg/dl (74-100); Sodium 132 mmol/L (136-145); Total Protein,Serum 6.1 g/dl (6.3-8.2)
== END 2022-03-23 15:40 | disposition home or self-care (01) ==
LOC: OBOUT 11:57 → OB 11:57
PROVIDERS: PCP Nurse Practitioner Family; Visit Provider Obstetrics & Gynecology
DX: O47.03 False labor before 37 completed weeks of gestation, third trimester (principal); Z3A.35 35 weeks gestation of pregnancy; M54.50 Low back pain, unspecified; R11.0 Nausea
CPT/HCPCS: 59025; 80053; 85025; 96372; G0463; J2405

== ENCOUNTER → 2022-03-27 14:34 | Outpatient (CLI) | payer OTHER, SELFPAY ==
--- NOTE | 2022-03-27 14:37 | US_ITS ---
FINAL REPORT CLINICAL HISTORY: SGA; hypertension; obesity FINDINGS: TRANSABDOMINAL ULTRASOUND There is a single live intrauterine gestation. Presentation is cephalic. Placenta is posterior/fundal, grade 3. Cardiac activity is confirmed at 143 bpm. Fetus movement and practice breathing is noted. JEANIE: 19.78 cm MEASUREMENTS: ULTRASOUND AGE: 35 weeks 1 day. GESTATION AGE: 35 weeks 4 days. ESTIMATED WEIGHT: 2621 g GROWTH PERCENTILE: 39% BPD: 8.7 cm corresponding with 35 weeks 0 days. OFD: 10.9 cm corresponding with 35 weeks 0 days. HC: 31 cm corresponding with 35 weeks 4 days. AC: 31.7 cm corresponding with 35 weeks 5 days. FL: 6.8 cm corresponding with 34 weeks 6 days. HC/AC: 0.97 CI: 80% FL/BPD: 78% FL/AC: 21% BREATHIN/2 MOVEMENT: 2/2 TONE: 2/2 FLUID VOLUME: 2/2 BPP SCORE: 8/8 IMPRESSION: Single living IUP with an ultrasound age of 35 weeks 1 day. BPP SCORE: 8/8 Reviewed, Interpreted and Dictated by Kory Gonzáles III, MD Transcribed by Raquel Romano Authenticated and [facility]
== END ==
PROVIDERS: PCP Nurse Practitioner Family; Visit Provider Obstetrics & Gynecology
DX: O36.5990 Maternal care for other known or suspected poor fetal growth, unspecified trimester, not applicable or unspecified (principal)
CPT/HCPCS: 76811; 76819; 76820

== ENCOUNTER 2022-03-29 14:33 | Outpatient (CLI) | payer OTHER, SELFPAY ==
[2022-03-29 14:45] VITALS: BP 129/76; PULSE 87; RESP 18; TEMP 36.8; O2SAT 99; BMI 46.5; BMI 46.6
--- NOTE | 2022-03-29 14:59 | US_ITS ---
FINAL REPORT CLINICAL HISTORY: NON REACTIVE IN THE OFFICE FINDINGS: TRANSABDOMINAL ULTRASOUND There is a single live intrauterine gestation. Presentation is cephalic. The cervix is closed and measures 3.1 cm. Placenta is posterior, high, grade 2/3. Cardiac activity is confirmed at 144 bpm. movement and practice breathing is seen. JEANIE: 9.4 MEASUREMENTS: ULTRASOUND AGE: 35 weeks 3 days. GESTATION AGE: 35 weeks 6 days. ESTIMATED WEIGHT: 2737 g GROWTH PERCENTILE: 45% BPD: 8.7 cm corresponding with 35 weeks 2 days. OFD: 11.2 cm corresponding with 36 weeks 5 days. HC: 31.5 cm corresponding with 35 weeks 2 days. AC: 32.6 cm corresponding with 36 weeks 4 days. FL: 6.7 cm corresponding with 34 weeks 2 days. HC/AC: 0.96 CI: 78% FL/BPD: 76% FL/AC: 20% BREATHIN/2 MOVEMENT: 2/2 TONE: 2/2 FLUID VOLUME: 2/2 BPP SCORE: 8/8 IMPRESSION: Single living IUP with an ultrasound age of 35 weeks 3 days. BPP SCORE: 8/8 Reviewed, Interpreted and Dictated by Kory Gonzáles III, MD Transcribed by Raquel Romano Authenticated and [facility]
== END 2022-03-29 16:17 | disposition home or self-care (01) ==
LOC: OBOUT 14:34 → OB 14:36
PROVIDERS: PCP Nurse Practitioner Family; Referring Provider Obstetrics & Gynecology; Visit Provider Obstetrics & Gynecology
DX: O26.893 Other specified pregnancy related conditions, third trimester (principal); Z3A.35 35 weeks gestation of pregnancy
CPT/HCPCS: 59025; 76811; 76819; 76820; G0463

== ENCOUNTER → 2022-04-05 06:17 | Outpatient (CLI) | payer OTHER, SELFPAY | PROVIDERS: Visit Provider Obstetrics & Gynecology | DX: Z34.90 Encounter for supervision of normal pregnancy, unspecified, unspecified trimester (principal) | CPT/HCPCS: 86403 ==

== ENCOUNTER 2022-04-06 19:17 | Outpatient (CLI) | payer OTHER, SELFPAY ==
[2022-04-06 19:28] VITALS: BMI 48.4
[2022-04-06 19:45] LABS: Microscopic, Urine URINE MICROSCOPIC (MICROSCOPIC)
[2022-04-06 19:51] LABS: Appearance,Urine CLEAR (Clear); Bilirubin,Urine Negative (Negative); Blood, Urine TRACE-I (Negative); Color,Urine YELLOW (Yellow); Glucose,Urine (UA) Negative (Negative); Ketones,Urine Negative (Negative); Leukocyte Esterase,Urine Negative (Negative); Nitrate,Urine Negative (Negative); Protein,Urine TRACE (Negative); Urobilinogen,Urine 0.2 EU/dl (0.2)
[2022-04-06 20:01] LABS: Barbiturates Screen,Urine Negative ng/ml (<200)
[2022-04-06 20:02] LABS: Benzodiazepines Screen,Urine Negative ng/ml (<200)
[2022-04-06 20:03] LABS: Amphetamine/Metha Screen,Urine Negative ng/ml (<1000); Cannabinoid Screen,Urine Negative ng/ml (<50)
[2022-04-06 20:04] LABS: Cocaine Screen,Urine Negative ng/ml (<300)
[2022-04-06 20:05] LABS: Methadone Screen,Urine Negative ng/ml (<300); Opiate Screen,Urine Negative ng/ml (<300)
[2022-04-06 20:06] LABS: Phencyclidine Screen,Urine Negative ng/ml (<25)
[2022-04-06 20:45] LABS: Bacteria,Urine Trace /lpf; Calcium Oxalate Crystals,Urine 1+ /lpf
[2022-04-06 20:46] VITALS: BP 125/76; PULSE 99; RESP 19; TEMP 36.4; O2SAT 97; BMI 48.4
== END 2022-04-06 21:00 | disposition home or self-care (01) ==
LOC: OBOUT 19:20 → OB 19:21
PROVIDERS: PCP Obstetrics & Gynecology; Visit Provider Obstetrics & Gynecology
DX: O60.03 Preterm labor without delivery, third trimester (principal); Z3A.37 37 weeks gestation of pregnancy
CPT/HCPCS: 59025; 80305; 81001; G0463

== ENCOUNTER 2022-04-16 16:42 | Outpatient (CLI) | payer OTHER, SELFPAY ==
[2022-04-16 16:54] VITALS: BMI 47.0
[2022-04-16 17:35] LABS: Microscopic, Urine URINE MICROSCOPIC (MICROSCOPIC)
[2022-04-16 17:37] LABS: Appearance,Urine CLEAR (Clear); Blood, Urine 1+ (Negative); Color,Urine YELLOW (Yellow); Glucose,Urine (UA) Negative (Negative); Ketones,Urine TRACE (Negative); Leukocyte Esterase,Urine Negative (Negative); Nitrate,Urine Negative (Negative); PH,Urine 6.5 (5.0-8.5); Protein,Urine 1+ (Negative); Specific Gravity, Urine 1.025 (1.005-1.030); Urobilinogen,Urine 0.2 EU/dl (0.2)
[2022-04-16 17:44] VITALS: BP 140/84; PULSE 113; RESP 20; TEMP 36.6; O2SAT 98; BMI 47.0
[2022-04-16 17:44] LABS: Bilirubin,Urine 1+ (Negative)
[2022-04-16 17:45] LABS: Fetal Membrane Rupture (Rapid) Negative (Negative)
[2022-04-16 17:55] LABS: Bacteria,Urine 1+ /lpf; Calcium Oxalate Crystals,Urine 2+ /lpf
[2022-04-16 17:58] LABS: Barbiturates Screen,Urine Negative ng/ml (<200); Benzodiazepines Screen,Urine Negative ng/ml (<200)
[2022-04-16 17:59] LABS: Amphetamine/Metha Screen,Urine Negative ng/ml (<1000)
[2022-04-16 18:00] LABS: Cannabinoid Screen,Urine Negative ng/ml (<50); Methadone Screen,Urine Negative ng/ml (<300)
[2022-04-16 18:01] LABS: Cocaine Screen,Urine Negative ng/ml (<300)
[2022-04-16 18:02] LABS: Opiate Screen,Urine Negative ng/ml (<300); Phencyclidine Screen,Urine Negative ng/ml (<25)
== END 2022-04-16 18:00 | disposition home or self-care (01) ==
LOC: OBOUT 16:45 → OB 16:46
PROVIDERS: PCP Obstetrics & Gynecology; Visit Provider Obstetrics & Gynecology
DX: O26.893 Other specified pregnancy related conditions, third trimester (principal); Z3A.38 38 weeks gestation of pregnancy
CPT/HCPCS: 59025; 80305; 81001; 84112; G0463

== ENCOUNTER 2022-04-16 23:48 | Inpatient (IN) | payer OTHER, SELFPAY ==
[2022-04-16 23:03] VITALS: BP 159/98; PULSE 105; RESP 20; TEMP 36.7; O2SAT 95; BMI 48.9
[2022-04-17 00:31] LABS: Coronavirus 19, PCR Not Detected (NotDetected); Influenza A, PCR Not Detected (NotDetected); Influenza B, PCR Not Detected (NotDetected)
[2022-04-17 00:33] LABS: Basophils # 0.1 K/mm3 (0-0.2); Basophils % 1.2 % (0.1-2.0); Eosinophils # 0.1 K/mm3 (0.0-0.4); Eosinophils % 0.7 % (0.1-12.0); Hematocrit 36.9 % (37.0-47.0); Hemoglobin 12.2 g/dL (12.2-16.2); Lymphocytes # 3.6 K/mm3 (0.7-4.5); Lymphocytes % 32.8 % (10-50); Mean Corpuscular HGB Conc 32.9 g/dL (31.8-35.4); Mean Corpuscular Volume 91.1 fl (81-99); Monocytes # 0.8 K/mm3 (0.1-1.0); Monocytes % 7.3 % (1.7-9.3); Neutrophils # 6.3 K/mm3 (1.8-7.8); Platelet Count 348 K/mm3 (142-424); Red Blood Count 4.05 M/mm3 (4.20-5.40); Red Cell Distribution Width 14.3 % (11.5-17.5); White Blood Count 10.9 K/mm3 (4.8-10.8)
[2022-04-17 00:51] LABS: Barbiturates Screen,Urine Negative ng/ml (<200); Benzodiazepines Screen,Urine Negative ng/ml (<200)
[2022-04-17 00:52] LABS: Amphetamine/Metha Screen,Urine Negative ng/ml (<1000)
[2022-04-17 00:53] LABS: Cannabinoid Screen,Urine Negative ng/ml (<50); Cocaine Screen,Urine Negative ng/ml (<300)
[2022-04-17 00:54] LABS: Methadone Screen,Urine Negative ng/ml (<300)
[2022-04-17 00:55] LABS: Opiate Screen,Urine Negative ng/ml (<300); Phencyclidine Screen,Urine Negative ng/ml (<25)
--- NOTE | 2022-04-17 07:15 | HMH.PHAINT ---
MEDICATION RECONCILIATION COMPLETED ON PATIENT USING EXTERNAL FILL HISTORY FROM PHARMACY AND LIST FROM CONSTRUCTION OPERATIONS MANAGER OFFICE. -JEFFREY VARELAD
[2022-04-17 07:51] LABS: Basophils # 0.1 K/mm3 (0-0.2); Basophils % 0.8 % (0.1-2.0); Eosinophils # 0.1 K/mm3 (0.0-0.4); Eosinophils % 0.8 % (0.1-12.0); Hematocrit 34.7 % (37.0-47.0); Hemoglobin 11.4 g/dL (12.2-16.2); Lymphocytes % 30.7 % (10-50); Mean Corpuscular HGB Conc 32.8 g/dL (31.8-35.4); Mean Corpuscular Hemoglobin 29.9 pg (27.0-31.2); Mean Corpuscular Volume 91.1 fl (81-99); Monocytes # 0.6 K/mm3 (0.1-1.0); Monocytes % 6.3 % (1.7-9.3); Neutrophils # 5.9 K/mm3 (1.8-7.8); Neutrophils % 61.4 % (37.0-80.0); Platelet Count 281 K/mm3 (142-424); Red Blood Count 3.81 M/mm3 (4.20-5.40); Red Cell Distribution Width 14.5 % (11.5-17.5); White Blood Count 9.6 K/mm3 (4.8-10.8)
[2022-04-17 07:57] LABS: Alanine Aminotransferase 13 U/L (12-78); Anion Gap 10.9 mEq/L (5-15); Aspartate Amino Transferase 20 U/L (14-36); Blood Urea Nitrogen 12 mg/dl (7-17); Calcium 8.9 mg/dl (8.4-10.2); Carbon Dioxide 20 mmol/L (22.0-30.0); Chloride 109 mmol/L (98-107); Creatinine Clearance Estimated 112 mL/min (50-200); Estimated Glomerular Filt Rate 100 ml/min (>60); GFR (African American) 121 ML/MIN (>60); Glucose 103 mg/dl (74-100); Potassium 3.9 mmoL/L (3.5-5.1); Sodium 136 mmol/L (136-145); Uric Acid 5.7 mg/dl (2.5-6.2)
[2022-04-17 08:01] LABS: Activated Partial Thrombo Time 26.8 seconds (22.8-30.6); Fibrinogen 664 mg/dL (229.9-363.5); Prothrombin Time 10.2 seconds (10.1-12.5)
[2022-04-17 08:03] LABS: D-Dimer 1.28 ug/mL (0.0-0.5)
--- NOTE | 2022-04-17 08:26 | HMH.HP ---
*Admission Date: 04/16/22 *Chief complaint: rupture of membranes *History of present illness: 27 yo presented with spontaneous rupture of membranes on the evening of 04/16/22 care at [facility]--Dr. Garcia complicated by CHTN managed with po labetalol, hypothyroidism managed with synthroid 75 and depression managed with celexa 40mg daily UDS + THC at initial visit but follow up UDS negative [facility] History Medical History: Reports:: Anxiety, Asthma, Depression, Migraine Denies:: Cancer, Diabetes Mellitus Type 1, Diabetes Mellitus Type 2, Hypertension, Internal Pacemaker, MRSA, Seizures *Have you ever received a pneumonia vaccine?: No *Have you received a flu vaccine this season?: No Other Medical History: Reports: Hypothyroidism, Thyroid Disease. Denies: Blood Transfusion Reaction Anesthesia experience/problems:: nac Other Surgeries: Yes: No Previous Surgery, Cholecystectomy, Dilation and Curettage. 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 history: Polycystic Ovary Syndrome, Spontaneous Para: 0 Review of Systems - Review of Systems Review of systems:: pertinent systems reviewed and negative unless documented below - *Genitourinary Denies abnormal vaginal bleeding - *Neurologic Denies headache(s), Denies other visual disturbances Meds Home Medications Medication Instructions Recorded Confirmed Type levothyroxine 75 mcg tablet 75 mcg PO DAILY tab 03/22/21 04/17/22 History vit no.95-ferrous 1 tab PO DAILY 09/13/21 04/17/22 History fumarate 28 mg-folic acid 800 mcg tablet citalopram 40 mg tablet 40 mg PO DAILY tab 03/14/22 04/17/22 History Ferrous Sulfate 325 mg PO DAILY 04/17/22 04/17/22 History Labetalol HCl [Normodyne 100mg 100 mg PO TID 04/17/22 04/17/22 History tablet] Omeprazole Magnesium 20 mg PO DAILY 04/17/22 04/17/22 History Ondansetron [Zofran 4mg ODT] 4 mg PO Q4HP PRN 04/17/22 04/17/22 History Allergies Allergy/AdvReac Type Severity Reaction Status Date / Time acetaminophen Allergy Severe Difficulty Verified 04/11/22 10:15 Swallowing Exam Vital signs and Labs for Last 24 Hours: Temp Pulse Resp BP Pulse Ox 97.4 F L 76 12 145/91 H 99 04/17/22 18:52 04/17/22 18:52 04/17/22 18:52 04/17/22 18:52 04/17/22 18:52 Laboratory Results - last 24 hr 04/16/22 23:50: Urine Opiates Screen Negative, Urine Methadone Screen Negative, Ur Barbituates Screen Negative, Ur Phencyclidine Scrn Negative, Ur Amphetamines Screen Negative, U Benzodiazepines Scrn Negative, Urine Cocaine Screen Negative, U Marijuana (THC) Screen Negative 04/16/22 23:50: SARS-CoV-2 (PCR) Not detected, Influenza A Untype (PCR) Not detected, Influenza Type B (PCR) Not detected 04/17/22 00:20: WBC 10.9 H, RBC 4.05 L, Hgb 12.2, Hct 36.9 L, MCV 91.1, MCH 30.0, MCHC 32.9, RDW 14.3, Plt Count 348, MPV 10.0, Neut % (Auto) 58.0, Lymph % (Auto) 32.8, [place] % (Auto) 7.3, Eos % (Auto) 0.7, Baso % (Auto) 1.2, Neut # (Auto) 6.3, Lymph # (Auto) 3.6, [place] # (Auto) 0.8, Eos # (Auto) 0.1, Baso # (Auto) 0.1 04/17/22 00:20: Blood Type A Positive, Antibody Screen Negative 04/17/22 07:42: WBC 9.6, RBC 3.81 L, Hgb 11.4 L, Hct 34.7 L, MCV 91.1, MCH 29.9, MCHC 32.8, RDW 14.5, Plt Count 281, MPV 10.0, Neut % (Auto) 61.4, Lymph % (Auto) 30.7, [place] % (Auto) 6.3, Eos % (Auto) 0.8, Baso % (Auto) 0.8, Neut # (Auto) 5.9, Lymph # (Auto) 3.0, [place] # (Auto) 0.6, Eos # (Auto) 0.1, Baso # (Auto) 0.1 04/17/22 07:42: PT 10.2, INR 0.90, APTT 26.
--- NOTE | 2022-04-17 10:33 | HMH.LABNOT ---
Labor Note - Subjective: Date: 04/17/22 Time: 10:33 regular contraction Comment:: IUPC and FSE placed without difficulty or complication - Objective: Cervical Dilation:: 1 Effacement:: 70% Station: -2 Membranes: spontaneously ruptured - Fetus: Monitoring?: Yes monitoring type:: Internal - Assessment: Patient Problems: All Active Problems Spontaneous rupture of amniotic membranes (Acute) Anemia (Acute) 38 weeks gestation of (Acute) contractions (Acute) Hypertension complicating (Acute) Poor weight gain of (Acute) Positive urine drug screen (Acute) Headache in (Acute) Morbid obesity with body mass index (BMI) of 45.0 to 49.9 in adult (Acute) Hypothyroidism (Acute) Depression (Acute) (Acute) Abdominal pain (Chronic) - Plan: Comment:: Continue pitocin augmentation Continuous monitoring
--- NOTE | 2022-04-17 11:07 | HMH.ANESCL ---
[facility] Anesthesia Checklist - Patient Identification Patient Identification: Arm Band - Structural Data Admitted From: Inpatient Planned Operative Procedure/s: labor epidural Consent for Planned Operative Procedure(s) Verified: Yes Verified Documents: Surgical Consent, History and Physical - NPO Status Verified Time NPO: 00:00 - Additional verifications Anesthesia Reactions: No Hx Blood Transfusions: No Blood Transfusion Reaction: No - Airway Assessment C-Spine Mobility Assessed: Yes TMJ Mobility Assessed: Yes Dentition: Good Dentition - Neurological Assessment Level of Consciousness: Awake, Alert - Anesthesia Plan Anesthesia Risk discussed: Yes Anesthesia Plan: Verified ASA Class: III Anesthesia Type: Epidural [facility] History I have reviewed the patient's past medical history: Yes Medical History: Reports:: Anxiety, Asthma, Depression, Migraine Denies:: Cancer, Diabetes Mellitus Type 1, Diabetes Mellitus Type 2, Hypertension, Internal Pacemaker, MRSA, Seizures *Have you ever received a pneumonia vaccine?: No *Have you received a flu vaccine this season?: No Other Medical History: Reports: Hypothyroidism, Thyroid Disease. Denies: Blood Transfusion Reaction Anesthesia experience/problems:: nac Other Surgeries: Yes: Cholecystectomy, Dilation and Curettage. 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
--- NOTE | 2022-04-17 16:35 | HMH.LABNOT ---
Labor Note - Subjective: Date: 04/17/22 Time: 16:35 - Objective: Cervical Dilation:: 1 Effacement:: 70% Station: -2 - Assessment: Labor progressing?: No Patient Problems: All Active Problems Spontaneous rupture of amniotic membranes (Acute) Anemia (Acute) 38 weeks gestation of (Acute) contractions (Acute) Hypertension complicating (Acute) Poor weight gain of (Acute) Positive urine drug screen (Acute) Headache in (Acute) Morbid obesity with body mass index (BMI) of 45.0 to 49.9 in adult (Acute) Hypothyroidism (Acute) Depression (Acute) (Acute) Abdominal pain (Chronic) - Plan: Comment:: Discussed with patient and family lack of progress in labor and need for c section Questions answered and consent obtained Will proceed to the OR
[2022-04-17 18:22] VITALS: BP 132/89; PULSE 81; RESP 12; TEMP 36.3; O2SAT 99
--- NOTE | 2022-04-17 18:26 | P.PN_ITS ---
[facility] Anesthesia Record Part I Intake, IV Amount: 1,800 Estimated blood loss (mL): 800 Urine output (mL): 0 Blood Pressure: 132/87 SaO2: 99 Pulse Rate: 81 Respiratory Rate: 12 Temperature: 97.3 F Patient is:: Awake Stable to PACU at:: 18:22
[2022-04-17 18:27] VITALS: BP 132/87; PULSE 81; RESP 12; TEMP 36.3; O2SAT 99
[2022-04-17 18:32] VITALS: BP 147/87; PULSE 75; RESP 12; O2SAT 99
[2022-04-17 18:42] VITALS: BP 142/92; PULSE 76; RESP 12; O2SAT 99
[2022-04-17 18:52] VITALS: BP 145/91; PULSE 76; RESP 12; TEMP 36.3; O2SAT 99
--- NOTE | 2022-04-17 19:01 | SUR.PHASEI ---
1850- detailed report called to jacob gaytan on OB floor. 1852- pt left in stable condtion with jacob gaytan
--- NOTE | 2022-04-17 20:37 | P.OP_ITS ---
Date of procedure: 04/17/22 Pre-op Diagnosis:: 1. 38 4/7 2. Spontaneous rupture of membranes 3. Chronic hypertension 4. Morbid obesity BMI 49 5. Anemia 6. Failure to progress in labor Post-op Diagnosis:: Same Procedure performed:: Low Transverse C Section Surgeon:: Trudy Garcia MD Policy Analyst(s):: Phillip He OPTOMETRY PROFESSOR:: Deni Galvez Anesthesia: epidural Estimated blood loss (mL): 800 Operative findings:: Live born male infant in vertex presentation Operative note:: The patient was taken to the OR and was prepped and draped in normal sterile fashion. A pfannenstiel skin incision was made with the scalpel 2cm above the pubic symphysis and carried down to the fascia sharply. The fascia was incised in the midline and sharply dissected off the rectus muscles. The muscles were in the midline and the peritoneum was entered sharply and extended bluntly. The Mateo-O self retaining retractor was placed in the abdomen and a bladder flap was created. The uterus was incised in the lower uterine segment in a transverse fashion and extended bluntly. The infant was delivered in c ontrolled fashion, without complication or shoulder dystocia. The infant was vigorous at and handed to awaiting marketing communications specialist and nursing staff for evaluation after the umbilical cord was clamped and cut. Cord blood was collected and a cord segment was preserved. The placenta was manually extracted and noted to be intact. The uterus was repaired with 0-vicryl in a running/locked fashion. A second layer was placed for hemostasis. The bladder flap was closed with 2-0 vicryl in a running fashion. The peritoneum was closed with 2-0 vicryl in a running fashion. The fascia was closed with #1 vicryl in a running fashion. The subcutaneous fat was closed with 2-0 vicryl in an interrupted fashion. The skin was closed with anthony. The patient tolerated the procedure well. TAP block was placed by anesthesia before the patient left the OR. Sponge, lap, needle and instrument counts were correct x 2. She was taken to PACU awake and in stable condition. Condition: stable Disposition: PACU Specimens:: placenta Complications:: none
[2022-04-17 22:04] VITALS: RESP 18
[2022-04-18 00:45] VITALS: RESP 18
[2022-04-18 07:50] LABS: Hematocrit 30.8 % (37.0-47.0)
--- NOTE | 2022-04-18 08:59 | HMH.ACPN2 ---
Internal Medicine - PN: Subj *Date: 04/18/22 *Time: 08:59 Interval history: POD #1 primary CS Ambulating and voiding without difficulty Tolerating regular diet Lochia appropriate Pain control sufficient PO labetalol continued at previous schedule Exam Vital signs and Labs for Last 24 Hours: Temp Pulse Resp BP Pulse Ox 97.4 F L 76 18 145/91 H 99 04/17/22 18:52 04/17/22 18:52 04/18/22 00:45 04/17/22 18:52 04/17/22 18:52 Laboratory Results - last 24 hr 04/18/22 07:22: Hgb 10.0 L D, Hct 30.8 L I & O for Last 24 hours: Intake & Output 04/15/22 04/16/22 04/17/22 04/18/22 11:59 11:59 11:59 11:59 Intake Total 1800 / 1800 Output Total 600 / 600 Balance 1200 / 1200 Weight 303 lb Narrative: CONSTITUTIONAL: no acute distress HEENT: mucous membranes moist PULMONARY: breathing unlabored without audible wheezes CV: no tachycardia or visible JVD; normal LE peripheral pulses ABD: soft, ND; appropriately tender but no rebound/guarding : fundus firm below umbilicus SKIN: incision well approximated with no drainage, erythema or induration EXT: 1+ edema LEs NEURO: alert/oriented, no altered mental status PSYCH: appropriate mood and demeanor without anxiety/depression Assessment and Plan (1) 38 weeks gestation of Status: Acute Category: Medical Code(s): Z3A.38 - 38 weeks gestation of (2) Spontaneous rupture of amniotic membranes Status: Acute Category: Medical (3) Hypertension complicating Status: Acute Qualifiers: Trimester: unspecified trimester Qualified Code(s): O16.9 - Unspecified maternal hypertension, unspecified trimester Category: Medical Code(s): O16.9 - Unspecified maternal hypertension, unspecified trimester (4) Anemia Status: Acute Category: Medical Code(s): D64.9 - Anemia, unspecified (5) Morbid obesity with body mass index (BMI) of 45.0 to 49.9 in adult Status: Acute Category: Medical Code(s): E66.01 - Morbid (severe) obesity due to excess calories; Z68.42 - Body mass index [BMI] 45.0-49.9, adult (6) Hypothyroidism Status: Acute Qualifiers: Hypothyroidism type: unspecified Qualified Code(s): E03.9 - Hypothyroidism, unspecified Category: Medical Code(s): E03.9 - Hypothyroidism, unspecified (7) Depression Status: Acute Qualifiers: Depression Type: unspecified Qualified Code(s): F32.A - Depression, unspecified Category: Medical Code(s): F32.A - Depression, unspecified (8) S/P Status: Acute Category: Surgical Code(s): Z98.891 - History of uterine scar from previous surgery - Assessment and plan all Dx Assessment and Plan for all problems:: Routine postop care Continue labetalol 100mg po TID Possible discharge home tomorrow
[2022-04-18 09:00] VITALS: BP 125/75; PULSE 97; RESP 18; TEMP 36.7; O2SAT 98
[2022-04-18 13:10] VITALS: BP 132/84; PULSE 88; RESP 17; TEMP 37.1; O2SAT 96
--- NOTE | 2022-04-18 13:44 | SW/DCPLANNER ---
Addendum entered by Essence Cline 04/24/22 13:25: Infant cord screen is NEGATIVE. Original Note: I received a referral on this patient regarding THC use during . Patient tested positive for THC on 10/10/21 and 01/09/22. Patient stated that on 10/10 visit she had used Delta 8 prior to finding out she was . Patient is unsure as to why she would be THC positive on 01/09/2022. Patient delivered infant male (Laron Barger) on 04/17/22. 's father (Aly Barger 94) was present at time of my visit. This is patient and Aly's first child. Patient, Aly and infant will reside at [address] [place] [address] in [place] [address]. Patient's contact number is [phone]. Patient is currently established with [facility] and enrolled in HANDS program. I will update HANDS program regarding delivery. Patient stated that she has the following items at home: crib, carseat, clothing, diapers and bottle/breast feeding. Patient's nurse (Vera Ruiz) stated that patient is appropriate with infant. Patient is expected to discharge home on 04/19/22 or 04/20/22. Patient did not have any further needs/questions at this time.
[2022-04-18 14:01] VITALS: BP 145/91; PULSE 76; TEMP 36.3
--- NOTE | 2022-04-18 14:01 | P.PN_ITS ---
[facility] Anesthesia Record Part II Discharge Time: 18:52 Destination: Obstetric PACU nurse assessment reviewed?: Yes Patient Condition:: Good Anesthesia Complications:: None Swallowing reflex intact?: Yes Cyanosis?: No Blood Pressure: 145/91 Pulse Rate: 76 Temperature: 97.4 F Mental Status: Alert & Oriented Pain level:: 0 Nausea and/or vomitting:: None Intake, IV Amount: 0
[2022-04-18 16:00] VITALS: BP 129/68; PULSE 95; RESP 18; TEMP 36.9; O2SAT 97
--- NOTE | 2022-04-19 08:28 | HMH.OBDCSM ---
General - General Admission date:: 04/16/22 Discharge date: 04/19/22 HPI - History of Present Illness History of present illness: POD # 2 s/p PLTCS Patient resting comfortably in bed. Pain controlled. Light lochia. Formula feeding. Voiding without difficulty and passing flatus. Tolerating regular diet. Admits to headache yesterday that resolved. Denies fever/chills, chest pain and shortness of breath. Denies dizziness/lightheadedness, vision changes, RUQ pain and swelling. Hospital Course Hospital Course: Ms Rosario Barger is a 27 yo at 38w3d admitted to [facility] Labor and Delivery on 04/16/22 for spontaneous rupture of membranes. She underwent a primary on 04/17/22 secondary to failure to progress. She delivered a boy, named Laron, weighing 7 lb 2 oz. APGARs were 5 (1 min), 7 (5 min), 9 (10 min). EBL was 800 mL. PPD #1 She was doing well. No chief complaints. She is formula feeding. Vitals were: BP 145/91, HR 76, R 18, T 97.4. Heart was regular rate and rhythm. Lungs were clear to auscultation. ABdomen was soft, nontender, uterine fundus firm and below umbilicus. Lochia was light. She admitted to headaches that resolved. PPD # 2 She was doing well. She had no chief complaints. Reported decreased lochia. She was urinating without difficulty. Passing flatus. Pain was controlled. She had no nausea, vomiting, fever/chills, chest pain or shortness of breath. Vitals were stable. Heart was regular rate and rhythm. Lungs were clear to auscultation. Abdomen was soft, nontender, uterine fundus firm and below umbilicus. Extremities with +1 edema. No calf tenderness to palpation. Normal hospital course. During this admission, patient's hemoglobin and hematocrit were: 04/17/22: Hgb 12.2, Hct 36.9 04/18/22: Hgb 10.0, Hct30.8 Rhogam Administration: Not Indicated Objective Vital signs: Temp Pulse Resp BP Pulse Ox 98.4 F 95 H 18 129/68 97 04/18/22 16:00 04/18/22 16:00 04/18/22 16:00 04/18/22 16:00 04/18/22 16:00 no acute distress, morbidly obese - *Routine HEENT Exam Head: Present: normocephalic Eye: Absent: conjunctivae pink ENT: Present: mucous membranes moist - *Routine Respiratory Exam Present: CTA bilaterally - *Routine Cardiovascular Exam Present: RRR - *Routine Abdominal Exam Present: soft, normoactive bowel sounds, tenderness (appropriate tenderness to palpation postoperatively), obese. Absent: distended Comments: Pfannenstiel incision clean/dry/intact with metal anthony. Healing well. No erythema and no drainage - *Routine Extremities Exam Present: edema (+1 bilateral lower extremity edema), full ROM. Absent: calf tenderness - *Routine Neurological Exam Present: alert, oriented X3 - Routine Psychiatric Exam Present: normal affect DS: Diagnosis - Discharge Diagnosis (1) 38 weeks gestation of Status: Acute (2) Spontaneous rupture of amniotic membranes Status: Acute (3) Hypertension complicating Status: Acute (4) Anemia Status: Acute (5) Morbid obesity with body mass index (BMI) of 45.0 to 49.9 in adult Status: Acute (6) Hypothyroidism Status: Acute (7) Depression Status: Acute (8) S/P Status: Acute Discharge Plan - Patient Discharge Instructions ACTIVITY: Continue current activity DIET: regular diet Additional Instructions: -No heavy lifting/strenuous activity -No driving while taking prescription narcotic or until released -Nothing in the vagina for 6 weeks, no tub baths Patient Instructions: Depression, Hemorrhage, DI for , DI for Pre-eclampsia, Surgical Site Infection, DI for Postoperative Pain, [facility] Post Discharge Instructions, Preventing the Spread of Coronavirus Discharge Instructions - Follow up Plan Follow up with: Trudy aGrcia MD [Primary Care Provider] - Disposition: Home, Self-Care Condition at discharge
[2022-05-12 07:26] LABS: POC Glucose,Bedside 54 (70-110)
== END 2022-04-19 13:00 | disposition home or self-care (01) | DRG 788 ==
LOC: OBOUT 23:49 → OB 23:49
PROVIDERS: Admitting Provider Obstetrics & Gynecology; PCP Obstetrics & Gynecology; Visit Provider Obstetrics & Gynecology
PROC: 10D00Z1 Extraction of Products of Conception, Low, Open Approach (ICD-10-PCS; CPT 59514; principal; 2022-04-17 16:50)
DX: O16.4 Unspecified maternal hypertension, complicating childbirth (principal); Z37.0 Single live birth; O99.02 Anemia complicating childbirth; O99.284 Endocrine, nutritional and metabolic diseases complicating childbirth; Z3A.38 38 weeks gestation of pregnancy; O62.0 Primary inadequate contractions
CPT/HCPCS: 59514; 36415; 59025; 80048; 80305; 82962; 84450; 84460; 84550; 85014; 85018; 85025; 85378; 85384; 85610; 85730; 86850; 94761; C1758; C9290; C9803; G0283; J2405; J2505; U0003; U0005

== ENCOUNTER → 2022-06-02 13:04 | Outpatient (CLI) | payer OTHER, SELFPAY ==
--- NOTE | 2022-06-02 13:07 | US_ITS ---
FINAL REPORT CLINICAL HISTORY: pelvic pain FINDINGS: Transvaginal and transabdominal sonographic images of the pelvis were obtained. The uterus measures 8.0 x 4.7 x 3.6 cm. The endometrium measures 7 mm, which is within normal limits. There is a myometrium defect in the anterior myometrium consistent with a defect/scar. There is a hypoechoic focus adjacent to the lower uterine segment measuring about 2.4 x 1.4 cm which may represent a small hematoma. The right ovary measures 2.8 cm in length and left ovary measures 3.6 cm in length. Normal blood flow seen to the ovaries. There is no evidence of free fluid. IMPRESSION: Myometrial defect associated with known recent Caesarean section. Questionable small hematoma adjacent to the lower uterine segment. Reviewed, Interpreted and Dictated by Rod Scott MD Transcribed by Raquel Romano Authenticated and [facility]
== END ==
PROVIDERS: PCP Nurse Practitioner Family; Visit Provider Obstetrics & Gynecology
DX: R10.2 Pelvic and perineal pain (principal)
CPT/HCPCS: 76830

== ENCOUNTER → 2023-03-27 10:58 | Outpatient (CLI) | payer OTHER, SELFPAY ==
--- NOTE | 2023-03-27 11:02 | US_ITS ---
PROCEDURE: US TRANSVAGINAL CLINICAL INDICATION: heavy bleeding in menstrual cycle COMPARISON: No exams were available for comparison FINDINGS: Transvaginal sonographic images were obtained of the pelvis. UTERUS: 9cm x 3cmx 3cm with a combined endometrial thickness of 3.4mm. A Caesarean section scar is noted. Within the endometrium there is a small echogenic focus measuring 4.3 mm combined. There is a small echogenic focus in the posterior myometrium. LEFT OVARY: [id number] with a volume of 5.5ml.There are several small follicles. RIGHT OVARY: 3cmx [id number] with a volume of 7.1ml. There are several small follicles. Both ovaries are seen and appear normal. Doppler flow to both ovaries are seen. There is no fluid in the cul-de-sac. IMPRESSION: 1. Anteverted uterus normal in shape and size with a Caesarean section scar. 2. There are several small echogenic foci in the endometrium and myometrium. 3. There are several small follicles in both ovaries. Dictated by: Johnny He MD 03/27/2023 18:29 Johnny He MD in OV 03/27/2023 18:29
[2023-03-27 12:05] LABS: Hematocrit 41.6 % (37.0-47.0); Hemoglobin 13.6 g/dL (12.2-16.2)
[2023-03-28 05:10] LABS: Estradiol 26.1 pg/mL (.); FSH 7.8 mIU/mL (.)
[2023-04-01 18:16] LABS: Testosterone,Free 1.4 pg/mL (0.0-4.2)
== END ==
PROVIDERS: Obstetrics & Gynecology; PCP Nurse Practitioner Family; Visit Provider Obstetrics & Gynecology
DX: N92.6 Irregular menstruation, unspecified (principal); N92.0 Excessive and frequent menstruation with regular cycle; Z87.42 Personal history of other diseases of the female genital tract
CPT/HCPCS: 36415; 76830; 82626; 82670; 83001; 84402; 85014; 85018

== ENCOUNTER 2023-09-04 14:04 | Emergency (ER) | payer OTHER, SELFPAY ==
--- NOTE | 2023-09-04 14:42 | ED_ITS ---
Discharge Plan Disposition Patient Disposition: Home, Self-Care Condition: Good Prescriptions Prescriptions: New azithromycin [Zithromax] 250 mg tablet 250 mg PO UD DOSE PK Qty: 6 0RF Rx Instructions: Take two (2) tablets today, then one (1) tablet days #2 thru #5 [id number] [Bromfed DM] 2-30-10 mg/5 mL Syrup 5 ml PO Q6H PRN (Reason: Cough) Qty: 240 0RF ondansetron 4 mg Tablet,Disintegrating 4 mg PO Q8H PRN (Reason: Nausea) Qty: 12 0RF No Action levothyroxine [Euthyrox] 75 mcg tablet 75 mcg PO DAILY bupropion HCl 150 mg tablet extended release 24 hr 150 mg PO citalopram 20 mg tablet 20 mg PO Referrals Follow up/Referrals: Tiny Lowery [Primary Care Provider] - See instructions Discharge ED Provider: Dallas Coleman [facility] General Stated complaint: sore throat, bilateral ear pain, body aches, chill Time Seen by Provider: 09/04/23 14:41 History of Present Illness Provider Complaint: She states that for the past 2 days she has had sore throat, chills, malaise, cough, and n/v/d. Related Data Home Medications Medication Instructions Recorded Confirmed levothyroxine 75 mcg tablet 75 mcg PO DAILY THYROID 03/22/21 04/11/23 (Euthyrox) bupropion HCl 150 mg 24 hr tablet, 150 mg PO 03/22/23 04/11/23 extended release citalopram 20 mg tablet 20 mg PO 03/22/23 04/11/23 Previous Rx's Medication Instructions Recorded azithromycin 250 mg tablet 250 mg PO UD DOSE PK #6 tabs 09/04/23 (Zithromax) pirlzmcxzsapgjd-witfrrmyefqwvfm-SA 5 ml PO Q6H PRN Cough #240 mL 09/04/23 2 mg-30 mg-10 mg/5 mL oral syrup (Bromfed DM) ondansetron 4 mg disintegrating 4 mg PO Q8H PRN Nausea #12 tabs 09/04/23 tablet Allergies Allergy/AdvReac Type Severity Reaction Status Date / Time acetaminophen Allergy Severe Difficulty Verified 04/11/23 15:45 Swallowing [facility] Disclaimer: The information contained in this section may have been updated after the patient was seen, as this information can be updated by other users. 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 current occupational exposures/hazards: No caffeine: No ROS Obtained: Yes All systems reviewed & no additional complaints except as documented Constitutional Constitutional: Reports chills and Reports fever(s) Eyes Eyes: Denies eye discharge ENT Ears, Nose, Mouth, and Throat: Reports as per HPI Cardiovascular Cardiovascular: Denies chest pain Respiratory Respiratory: Denies chest congestion and Reports cough Gastrointestinal Gastrointestingal: Reports nausea; Denies abdominal pain, constipation, cramping, diarrhea or vomiting Musculoskeletal Musculoskeletal: Denies arthralgias Integumentary/Breasts Skin/Breast: Denies rash Neurologic Neurologic: Denies paresthesias Physical Exam General General appearance: alert and in no apparent distress Head Head exam: atraumatic, normocephalic and normal inspection Eye Eye exam: Present normal appearance, PERRL and EOMI ENT ENT exam: Present mucous membranes moist and normal external ear exam Expanded ENT Exam TM/Canal exam: Bilateral TM: erythema and bulging Nose exam: Absent sinus tenderness Mouth exam: Present normal external inspection; Absent drooling Teeth exam: Present normal inspection Throat exam: Present tonsillar erythema, tonsillomegaly and tonsillar exudate Neck Neck exam: Present normal inspection, full ROM and trachea midline; Absent tenderness, meningismus or lymphadenopathy Chest Chest inspection: Present normal inspection and symmetric chest wall rise; Absent tenderness Respiratory Respiratory exam: Present normal lung sounds bilaterally; Absent respiratory distress, wheezes or stridor Cardiovascular Cardiovascular exam: Present regular rate and normal rhythm; Absent systolic murmur or diastolic murmur Abdominal Exam Abdominal exam: Present soft and normal bowel sounds; Absent distention, tenderness, guarding, rebound or rigidity Extremities Exam Extremities exam: Present normal inspection and normal capillary refill; Absent calf tenderness Back Exam Back exam: Present normal inspection and full ROM; Absent tenderness, CVA tenderness (R) or CVA tenderness (L) Neurological Exam Neurological exam: Present alert, oriented X3 and CN II-XII intact Psychiatric Psychiatric exam: Present normal affect and normal mood Skin Skin exam: Present warm, dry, intact and normal color Medical Decision Making Medical Records Medical records reviewed: No I reviewed the patient's medical records. Dhruv Inquiry Pt receiving controlled substance: No Lab Data Lab results reviewed: Yes I reviewed the patient's lab results.
[2023-09-04 14:52] LABS: UTC Influenza A Antigen Negative (Negative); UTC Strep Screen (Rapid) Negative (Negative)
[2023-09-04 14:53] LABS: UTC Influenza B Antigen Negative (Negative)
[2023-09-04 14:54] VITALS: BP 138/96; PULSE 100; RESP 17; TEMP 36.9; O2SAT 98; BMI 47.0
[2023-09-04 15:22] VITALS: BP 138/96; PULSE 100; RESP 17; TEMP 36.9; O2SAT 98
== END 2023-09-04 15:23 | disposition home or self-care (01) ==
PROVIDERS: Emergency Provider Nurse Practitioner Family; PCP Nurse Practitioner Family
DX: J02.9 Acute pharyngitis, unspecified (principal); H92.03 Otalgia, bilateral; R05.9 Cough, unspecified; R50.9 Fever, unspecified; R11.0 Nausea; M79.18 Myalgia, other site; B34.9 Viral infection, unspecified
CPT/HCPCS: 87635; 87804; 87880; 99212; 99214; G0463

== ENCOUNTER 2023-12-19 11:00 | Outpatient (RCR) | payer OTHER, SELFPAY | END 2024-01-23 07:50 | disposition home or self-care (01) | LOC: PT 11:00 | PROVIDERS: Visit Provider Nurse Practitioner Family | DX: M54.50 Low back pain, unspecified (principal) | CPT/HCPCS: 97010; 97014; 97110; 97140; 97163; G0283 ==

== ENCOUNTER 2023-12-27 18:51 | Outpatient (CLI) | payer OTHER, SELFPAY ==
--- NOTE | 2023-12-27 18:53 | MR_ITS ---
PROCEDURE INFORMATION: Exam: MR Lumbar Spine Without Contrast Exam date and time: 12/27/2023 7:05 PM Age: 28 years old Clinical indication: Low back pain; Patient HX: Lower back pain. Bending makes it worse. Stiffness x 1 year; Additional info: Radiculopathy TECHNIQUE: Imaging protocol: Magnetic resonance imaging of the lumbar spine without contrast. COMPARISON: ABDPELW CT abdomen pelvis w con 02/14/2018 1:53 PM FINDINGS: Bones/joints: Vertebral body height, alignment and overall marrow signal are within normal limits. There is minor spondylotic change with disc bulges and facet arthropathy. Spinal cord: Visualized cord, conus medullaris and cauda equina are unremarkable without compression. L1-L2: At L1-L2 there is minor disc bulging and facet arthropathy causing minimal canal narrowing but no significant neural foraminal stenosis. L2-L3: No significant disc bulge or herniation. No severe spinal canal stenosis. No significant neural foraminal narrowing. L3-L4: No significant disc bulge or herniation. No severe spinal canal stenosis. No significant neural foraminal narrowing. L4-L5: No significant disc bulge or herniation. No severe spinal canal stenosis. No significant neural foraminal narrowing. L5-S1: At L5-S1 there is disc desiccation but no significant canal narrowing. There is a right lateral protrusion and annular high signal intensity zone causing mild foraminal mild stenosis. Soft tissues: Unremarkable. IMPRESSION: Lumbar spondylosis as described.
== END 2023-12-27 23:59 | disposition home or self-care (01) ==
LOC: RAD 18:52
PROVIDERS: PCP Nurse Practitioner Family; Visit Provider Nurse Practitioner Family
DX: M54.16 Radiculopathy, lumbar region (principal)
CPT/HCPCS: 72148; 76376

== ENCOUNTER 2024-02-04 11:52 | Emergency (ER) | payer OTHER, SELFPAY ==
[2024-02-04 13:00] VITALS: BP 137/75; PULSE 76; RESP 22; TEMP 37.1; O2SAT 98; BMI 47.0
--- NOTE | 2024-02-04 13:55 | EXP.UTC ---
Discharge Plan Disposition Patient Disposition: Home, Self-Care Condition: Good Prescriptions Prescriptions: New ibuprofen 600 mg tablet 600 mg PO Q6HP PRN (Reason: Moderate Pain) Qty: 20 0RF No Action citalopram 20 mg tablet 20 mg PO DAILY levothyroxine 50 mcg Tablet 50 mcg PO DAILY Referrals Follow up/Referrals: Todd Rosario DO [Staff Physician] - See instructions (call office for appointment) Tiny Lowery [Primary Care Provider] - See instructions Activity Restrictions/Add. Instructions Additional Instructions/Restrictions: Follow up with your Family Doctor and Orthopedics for further imaging and examination *weight bearing as tolerated *RICE, Rest the extremity, Ice 15-20 minutes 3-4 times daily, Compress- wear the roberto wrap as discussed as much as possible to help reduce swelling and pain, Elevate the extremity when at rest *Roberto wrap is for support and help control swelling, use it except in the shower. Be sure that is not to tight but not to loose either and crutches *Elevate when resting? *Ibuprofen 600-800mg every 6-8 hours as needed for pain an inflammation. If need something more can take Tylenol in between doses of Ibuprofen to help Immediately follow up with your family doctor for new or worsening of symptoms, or no noticeable improvement over the next 3-5 days Clinical Impressions Clinical Impression: Right calf pain Instructions Patient Instructions: DI for Calf Muscle Strain, How To Perform RICE (Rest, Ice, Compress, Elevate) Discharge ED Provider: Rajani Landrum [facility] General Stated complaint: right calf pain Mode of Arrival: Ambulatory Source of Information: Patient Limitations: No Limitations Time Seen by Provider: 02/04/24 13:55 Description of Symptoms (Recalled from Triage Doc. by RN): PATIENT C/O PAIN TO MID RIGHT CALF. SHE STATES SHE WAS LAYING HER TOLDER DOWN IN THE BED THIS MORNING AND WHEN SHE LEANED FORWARD SHE FELT SOMETHING IN HER CALF AND HAS HAD PAIN SINCE. SHE STATES PAIN IS WORSE WITH WEIGHT BEARING HEENT Symptoms (Recalled from RN notes): No Resp Symptoms (Recalled from RN notes): No Skin Symptoms (Recalled from RN notes): No MS Symptoms (Recalled from RN notes): Yes Functional Status (Recalled from RN notes): WNL History of Present Illness Provider Complaint: Patient states that she was leaning over putting her toddler in the bed when she felt something in her right calf area pop states since she has been having pain in her calf area and hurts when she tries to put weight on it and hurts when she tries to lift her foot States she came in to get it checked worried she may have torn something Related Data Home Medications Medication Instructions Recorded Confirmed citalopram 20 mg tablet 20 mg PO DAILY 03/22/23 02/04/24 levothyroxine 50 mcg tablet 50 mcg PO DAILY 02/04/24 02/04/24 Previous Rx's Medication Instructions Recorded ibuprofen 600 mg tablet 600 mg PO Q6HP PRN Moderate Pain 02/04/24 #20 tabs Allergies Allergy/AdvReac Type Severity Reaction Status Date / Time acetaminophen Allergy Severe Difficulty Verified 04/11/23 15:45 Swallowing Worker's Comp Is this a Worker's Comp case?: No [facility] Disclaimer: The information contained in this section may have been updated after the patient was seen, as this information can be updated by other users. 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 current occupational exposures/hazards: No caffeine: No ROS Obtained: Yes All systems reviewed & no additional complaints except as documented and Yes Systems reviewed as appropriate & no additional complaints except as documented Constitutional Constitutional: Reports system reviewed and no additional complaints, except as documented and Reports as per HPI ENT Ears, Nose, Mouth, and Throat: Reports system reviewed and no additional complaints, except as documented and Reports as per HPI Respiratory Respiratory: Reports system reviewed and no additional complaints, except as documented and Reports as per HPI Gastrointestinal Gastrointestingal: Reports system reviewed and no additional complaints, except as documented and as per HPI Musculoskeletal Musculoskeletal: Reports system reviewed and no additional complaints, except as documented, Reports as per HPI and Reports other (Pain in right calf area after feeling something pop earlier) Physical Exam General General appearance: alert and in no apparent distress ENT ENT exam: Present mucous membranes moist Respiratory Respiratory exam: Present normal lung sounds bilaterally; Absent respiratory distress or wheezes Cardiovascular Cardiovascular exam: Present regular rate, normal rhythm and normal heart sounds Expanded Lower Extremity Exam Right: Leg image: 1. reports pain and tenderness in right calf area after feeling something pop earlier when she bent over to put her child down now having pain with weight bearing Neurological Exam Neurological exam: Present alert, oriented X3 and normal gait Medical Decision Making Dhruv Inquiry Pt receiving controlled substance: No Dhruv was queried for this patient: No Vital Signs: 02/04/24 13:00 Temperature 98.8 F Temperature Source Oral Pulse Rate [Left Brachial] 76 Respiratory Rate 22 Blood Pressure [Left Arm] 137/75 Blood Pressure Mean [Left Arm] 95 Blood Pressure Source [Left Arm] Automatic Cuff Blood Pressure Position [Left Arm] Sitting 02 Sat by Pulse Oximetry 98 Oxygen Delivery Method Room Air Radiology Data #1: Image(s): Tib/Fib Image Reviewed: Yes I reviewed the patient's radiology image and Yes I have reviewed radiologist's interpretation Preliminary Findings: Normal/NAD IMPRESSION: There is no evidence of acute fracture.There is no evidence of malalignment or dislocation. Medical Decision Narrative: Medication discussed with pharmacy
--- NOTE | 2024-02-04 14:00 | XR_ITS ---
PROCEDURE INFORMATION: Exam: XR Right Tibia and Fibula Exam date and time: 02/04/2024 2:40 PM Age: 28 years old Clinical indication: Pain; Lower leg; Right TECHNIQUE: Imaging protocol: Radiologic exam of the right tibia and fibula. Views: 2 views. COMPARISON: No relevant prior studies available. FINDINGS: Bones/joints: There is no evidence of acute fracture.There is no evidence of malalignment or dislocation. Soft tissues: Soft tissue swelling of the ankle IMPRESSION: There is no evidence of acute fracture.There is no evidence of malalignment or dislocation.
[2024-02-04 15:23] VITALS: BP 137/75; PULSE 76; RESP 22; TEMP 37.1; O2SAT 98
== END 2024-02-04 15:29 | disposition home or self-care (01) ==
PROVIDERS: Emergency Provider Nurse Practitioner; PCP Nurse Practitioner Family
DX: M79.661 Pain in right lower leg (principal); X50.0XXA Overexertion from strenuous movement or load, initial encounter
CPT/HCPCS: 73590; 99212; 99214; G0463